=== PATIENT | male | born 1960 | race Caucasian/White ===

== ENCOUNTER 2020-02-06 12:29 | IRF | payer MEDICARE, MEDICAID, SELFPAY ==
[2020-02-06 13:20] VITALS: BMI 24.5
[2020-02-06 13:21] VITALS: BP 142/77; PULSE 74; RESP 18; TEMP 36.2; O2SAT 100
--- NOTE | 2020-02-06 13:37 | ADMGEN ---
This patient, Edward Snyder, was admitted to [facility] Room 219-01. Patient/family oriented to hospital policies and general routines including ID bracelet, bed and alarms, visiting hours, pain management, procedures, bathroom and other care routines, personal items, smoking policy, room service/diet, and visiting hours. Valuables list has been completed. Information on how to activate the Rapid Response Team has been discussed. Patient/Family are encouraged to report perceived risks to care and to ask questions if they do not understand what they are told or what they should do.
[2020-02-06 14:42] VITALS: PULSE 74; RESP 18; O2SAT 100; BMI 24.5
[2020-02-06 17:06] LABS: Glucose Point of Care 189 (65-105)
[2020-02-06] MEDS: metFORMIN HCL 500 MG TABLET 1000 MG PO (17:50)
[2020-02-06] MEDS: glipiZIDE 5 MG TABLET 10 MG BY MOUTH (17:50)
[2020-02-06] MEDS: INSULIN ASPART (*BKC) 100 UNITS/ML 15 UNITS SUB-Q (17:50)
[2020-02-06 20:00] VITALS: PULSE 78; RESP 20; O2SAT 100
[2020-02-06] MEDS: QUEtiapine FUMARATE 25 MG TABLET 50 MG PO (20:19)
[2020-02-06] MEDS: PRAVASTATIN SODIUM 20 MG TABLET PO (20:19)
[2020-02-06] MEDS: INSULIN GLARGINE (*BKC) 100 UNITS/ML 30 UNITS SUB-Q (20:20)
[2020-02-06 20:28] LABS: Glucose Point of Care 114 (65-105)
[2020-02-06 22:00] VITALS: BP 142/73; PULSE 78; RESP 20; TEMP 36.8; O2SAT 100
[2020-02-07 05:27] LABS: Basophils Absolute Auto 0.1 K/mm3 (0.0-0.1); Basophils Percent Auto 0.7 % (0.2-1.2); Eosinophils Absolute Auto 0.1 K/mm3 (0-0.3); Eosinophils Percent Auto 1.9 % (0-4.4); Hemoglobin 13.8 g/dL (14.0-18.0); Immature Granulocyte Absolute 0.05 K/mm3 (0.00-0.031); Immature Granulocyte Percent A 0.7 % (0-0.5); Lymphocytes Absolute Auto 2.39 K/mm3 (0.9-3.2); Lymphocytes Percent Auto 32.6 % (18.3-44.2); Mean Corpuscular HGB Conc 32.9 g/dl (32-36); Mean Corpuscular Hemoglobin 29.4 pg (26-34); Mean Corpuscular Volume 89.4 fl (80-100); Mean Platelet Volume 9.8 fl (7.4-10.4); Monocytes Absolute Auto 0.6 K/mm3 (0.1-0.6); Monocytes Percent Auto 7.8 % (2.6-8.5); Neutrophils Absolute Auto 4.1 K/mm3 (1.3-6.7); Neutrophils Percent Auto 56.3 % (45.5-73.1); Platelet Count Result 374 k/mm3 (150-375); Red Cell Distribution Width 13.1 % (11.5-14.5); White Blood Count 7.3 K/mm3 (4.5-10.0)
[2020-02-07 05:39] LABS: Hemoglobin A1C 11.9 % (<5.7)
[2020-02-07 05:41] LABS: Blood Urea Nitrogen 23 mg/dL (9-20); Calcium 9.2 mg/dL (8.4-10.2); Carbon Dioxide 33 mmol/L (22-30); Chloride 103 mmol/L (98-107); Estimated CRCL calculation 85 ml/min; Estimated Glomerular Filt Rate > 60; Glucose 74 mg/dL (75-110); Potassium 4.5 mmol/L (3.4-5.0); Sodium 137 mmol/L (137-145)
[2020-02-07 06:00] VITALS: BP 144/75; PULSE 66; RESP 18; TEMP 36.7; O2SAT 100
[2020-02-07] MEDS: QUEtiapine FUMARATE 100 MG TABLET 200 MG PO ×2 (06:05→12:54)
[2020-02-07 07:54] LABS: Glucose Point of Care 85 (65-105)
[2020-02-07] MEDS: INSULIN ASPART (*BKC) 100 UNITS/ML 15 UNITS SUB-Q ×2 (07:58→17:15)
[2020-02-07] MEDS: glipiZIDE 5 MG TABLET 10 MG BY MOUTH ×2 (07:59→17:12)
[2020-02-07] MEDS: metFORMIN HCL 500 MG TABLET 1000 MG PO ×2 (07:59→17:13)
[2020-02-07 08:00] VITALS: PULSE 68; RESP 18; O2SAT 100
[2020-02-07] MEDS: lisinopriL 20 MG TABLET 40 MG PO (08:00)
[2020-02-07] MEDS: ASPIRIN 81 MG ENTERIC TABLET PO (08:00)
--- NOTE | 2020-02-07 12:00 | WPDREHABHP ---
H&P: HPI History of Present Illness Chief complaint: CVA Narrative: Edward Snyder is a 59 year old male HISTORY OF PRESENT ILLNESS: The patient's primary rehab impairment category is 0 1-stroke The etiologic diagnosis is right ribeiro radiata acute / recent nonhemorrhagic infarction I saw this patient [id number] on February 07, 2020 at 12 noon The patient is a 59-year-old right-handed white male with a past medical history of hypertension and type 2 diabetes mellitus who initially presented to [facility] on February 02, 2020 with difficulty walking and hip pain that has been worsening for the previous 3 weeks. The patient reported progressive left leg weakness following following a fall. He has reported several fall since the 09 10 the last fall being just prior to admission when he slipped on a rug. CT of the head was negative. Hip CT showed a contusion but no fracture. Lab work was significant for acute kidney injury. He was admitted for acute kidney injury and left hip pain. He was given gentle hydration with improvement of creatinine to normal levels. Patient continued to have weakness so a brain MRI was ordered as well as a Neurology consult. Dr. epperson a neurologist reviewed the MRI and the patient was found to have multiple strokes on both sides in varying ages of from a couple of days ago to a few weeks old. 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 An echo was performed and showed an ejection fraction of 55 to 60%. No shunting or septal defects were noted. Carotid Dopplers did not show any significant stenosis. He will have an event monitor which is on place prior to discharge for 4 weeks. Physical examination continues to reveal generalized weakness impaired balance and decreased gross motor control. He passed his swallowing study and is on a mechanical soft / cardiac/ diabetic diet with thin liquids. He was source of his to be have been discharged on Lovenox however I do not see on his discharge medication but he would needed at least daily starts walking better The patient has not traveled outside the [place] or had contact with someone who is ill that has traveled outside the [place] in the previous 21 days. The patient has not traveled to an area of the [place] that is experiencing known transmission of the Coronavirus and has not had close personal contact with anyone that has. The patient does not have a fever. The patient is not experiencing any lower respiratory illness symptoms. Therapy was initiated at the acute care facility and the patient transferred to from [facility] on February 06, 2020 FALLS OR SURGERIES: The patient has had major surgeries in the 100 days prior to admission. They had falls in the past year. They had falls with injury in the past year. PAST MEDICAL HISTORY: hyperlipidemia hypertension diabetes mellitus PAST SURGICAL HISTORY: none SOCIAL HISTORY: the patient lives with his brother in a 2 story home with basement. He needs to get to the 2nd level to get to his bedroom. The laundry is in the basement. The patient was completely independent prior with no assistive device. The patient brother works but the patient says that [facility] Medina is available to help him following rehab if necessary. The patient had a fall just prior to his admission. No major surgery in the previous under days. Alcohol use to 4 times per month last drink was 1 week ago current every day smoker. FAMILY HISTORY: First-degree relative with hypertension mother with diabetes mellitus PRIOR LEVEL OF FUNCTION: Eating was INDEPENDENT Oral Care was INDEPENDENT Toileting Hygiene was INDEPENDENT Shower/Bathing was INDEPENDENT Upper Body Dressing was the patient lives with his brother in a 2 story home with the basement. He needs to get to the 2nd level to get to his bedroom. The laundry is in the basement. The patient was completely independent prior with no assistive
[2020-02-07 12:03] LABS: Glucose Point of Care 44 (65-105)
[2020-02-07 14:00] VITALS: BP 132/76; PULSE 86; RESP 18; TEMP 36.6; O2SAT 100
[2020-02-07] MEDS: TAMSULOSIN HCL 0.4 MG CAPSULE PO (15:26)
[2020-02-07 16:57] LABS: Glucose Point of Care 184 (65-105)
[2020-02-07 20:00] VITALS: PULSE 66; RESP 18; O2SAT 100
[2020-02-07] MEDS: PRAVASTATIN SODIUM 20 MG TABLET PO (20:23)
[2020-02-07] MEDS: QUEtiapine FUMARATE 25 MG TABLET 50 MG PO (20:23)
[2020-02-07] MEDS: INSULIN GLARGINE (*BKC) 100 UNITS/ML 30 UNITS SUB-Q (20:25)
[2020-02-07 21:46] VITALS: BP 105/75; PULSE 55; RESP 18; TEMP 36.7; O2SAT 100
[2020-02-07 21:46] LABS: Glucose Point of Care 86 (65-105)
[2020-02-08 06:00] VITALS: BP 135/76; PULSE 76; RESP 18; TEMP 36.9; O2SAT 100
[2020-02-08] MEDS: QUEtiapine FUMARATE 100 MG TABLET 200 MG PO ×2 (06:02→12:29)
[2020-02-08 07:00] LABS: Glucose Point of Care 70 (65-105)
[2020-02-08 08:00] VITALS: PULSE 76; RESP 18; O2SAT 98
[2020-02-08] MEDS: INSULIN ASPART (*BKC) 100 UNITS/ML 15 UNITS SUB-Q ×3 (08:24→17:32)
[2020-02-08] MEDS: lisinopriL 20 MG TABLET 40 MG PO (08:25)
[2020-02-08] MEDS: ASPIRIN 81 MG ENTERIC TABLET PO (08:25)
[2020-02-08] MEDS: metFORMIN HCL 500 MG TABLET 1000 MG PO ×2 (08:25→17:31)
[2020-02-08] MEDS: glipiZIDE 5 MG TABLET 10 MG BY MOUTH ×2 (08:25→17:31)
[2020-02-08 12:10] LABS: Glucose Point of Care 77 (65-105)
[2020-02-08 14:00] VITALS: BP 107/65; PULSE 76; RESP 18; TEMP 36.4; O2SAT 100
[2020-02-08 17:18] LABS: Glucose Point of Care 71 (65-105)
--- NOTE | 2020-02-08 17:50 | WPDNEURORHBP ---
Subjective Date/time seen: 02/08/20 17:50 Interval history: this 59-year-old diabetic male is here after having had a stroke with left-sided hemiparesis he denies any headache nausea vomiting chest pain shortness of breath and engage in therapy quite comfortable his left-sided weakness is improving Review of Systems Review of Systems: All systems reviewed & are unremarkable except as noted in HPI and below Functional Status Ambulation Ability Ambulation Assistive Devices: Parallel Bars Exam Const: General: comfortable and no acute distress HENMT: General nose exam: Normal nares present Mouth: Yes moist mucous membranes Eyes: General: appearance normal, both eyes and all related structures Neck: Neck: supple and no JVD Resp: Effort & Inspection: normal respiratory effort Auscultation: clear to auscultation bilaterally Cardio: Rate: regular rate Rhythm: regular rhythm GI: GI Palp: Yes Soft to palpation Auscultation: normal bowel sounds Skin: General skin exam: normal color and no rashes or lesions noted Neuro: Other: patient is awake and alert well oriented has left-sided weakness which is improving Extrem: General: normal to inspection Psych: Mental Status: mental status grossly normal Objective Data Vital Signs Vital Signs: Vital Signs - 24 hr 02/07/20 20:00 02/07/20 21:46 02/08/20 06:00 Temperature 36.7 C 36.9 C Pulse Rate 66 55 L 76 Respiratory Rate 18 18 18 Blood Pressure 105/75 135/76 Pulse Oximetry 100 100 100 02/08/20 08:00 02/08/20 14:00 Temperature 36.4 C L Pulse Rate 76 76 Respiratory Rate 18 18 Blood Pressure 107/65 Pulse Oximetry 98 100 Intake/Output Intake/Output: Intake & Output 02/05/20 02/06/20 02/07/20 02/08/20 23:59 23:59 23:59 23:59 Intake Total 720 840 480 Balance 720 840 480 Meds/Results Medications: Active Medications Generic Name Dose Route Start Last Admin Trade Name Freq PRN Reason Stop Dose Admin Aspirin 81 mg 02/07/20 09:00 02/08/20 08:25 Aspirin Ec PO 81 mg DAILY BRIGHT Administration Glipizide 10 mg 02/06/20 17:00 02/08/20 17:31 Glucotrol BY MOUTH 10 mg BIDWM BRIGHT Administration Insulin Aspart 15 units 02/06/20 17:00 02/08/20 17:32 Novolog SUB-Q 15 units TIDWM BRIGHT Administration Insulin Glargine 30 units 02/06/20 21:00 02/07/20 20:25 Lantus SUB-Q 30 units HS BRIGHT Administration Lisinopril 40 mg 02/07/20 09:00 02/08/20 08:25 Prinivil PO 40 mg DAILY BRIGHT Administration Metformin HCl 1,000 mg 02/06/20 17:00 02/08/20 17:31 Glucophage PO 1,000 mg BIDWM BRIGHT Administration Pravastatin Sodium 20 mg 02/06/20 21:00 02/07/20 20:23 Pravastatin Sodium PO 20 mg HS BRIGHT Administration Quetiapine Fumarate 50 mg 02/06/20 21:00 02/07/20 20:23 Seroquel PO 03/07/20 21:01 50 mg HS BRIGHT Administration Quetiapine Fumarate 200 mg 02/06/20 13:40 02/08/20 12:29 Seroquel PO 200 mg BID@0700,1200 BRIGHT Administration Tramadol HCl 50 mg 02/06/20 13:32 Ultram PO Q8H PRN Pain Labs Labs: Laboratory Results - last 24 hr 02/07/20 02/08/20 02/08/20 20:17 06:41 11:55 POC Capillary Glucose 86 70 77 02/08/20 16:55 POC Capillary Glucose 71 Progress Note: A&P Assessment and Plan (1) Hemiparesis of left nondominant side: Code(s): G81.94 - Hemiplegia, unspecified affecting left nondominant side Status: Acute (2) Tobacco abuse: Code(s): Z72.0 - Tobacco use Status: Acute (3) Alcohol use: Code(s): Z72.89 - Other problems related to lifestyle Status: Acute (4) Diabetes mellitus: Code(s): E11.9 - Type 2 diabetes mellitus without complications Status: Acute (5) Hypertension: Code(s): I10 - Essential (primary) hypertension Status: Acute (6) Stroke: Code(s): I63.9 - Cerebral infarction, unspecified Status: Acute Additional Plan medical managemen
[2020-02-08] MEDS: QUEtiapine FUMARATE 25 MG TABLET 50 MG PO (20:24)
[2020-02-08] MEDS: PRAVASTATIN SODIUM 20 MG TABLET PO (20:24)
[2020-02-08 21:44] LABS: Glucose Point of Care 35 (65-105)
[2020-02-08 21:44] LABS: Glucose Point of Care 122 (65-105)
[2020-02-08 22:00] VITALS: BP 122/73; PULSE 79; RESP 18; TEMP 36.6; O2SAT 100
[2020-02-09 01:58] LABS: Glucose Point of Care 63 (65-105)
[2020-02-09 03:14] LABS: Glucose Point of Care 66 (65-105)
[2020-02-09 05:04] LABS: Glucose Point of Care 59 (65-105)
[2020-02-09 05:58] VITALS: BP 111/72; PULSE 71; RESP 18; TEMP 36.9; O2SAT 100
[2020-02-09] MEDS: QUEtiapine FUMARATE 100 MG TABLET 200 MG PO ×2 (06:54→12:28)
[2020-02-09 06:57] LABS: Glucose Point of Care 93 (65-105)
--- NOTE | 2020-02-09 07:52 | PC.NURSE ---
called Dr Vogel regarding decreased glucose this am. per Dr Vogel no diabetes medication given this morning. will continue to monitor blood glucose.
[2020-02-09] MEDS: ASPIRIN 81 MG ENTERIC TABLET PO (08:22)
[2020-02-09] MEDS: lisinopriL 20 MG TABLET 40 MG PO (08:22)
--- NOTE | 2020-02-09 09:32 | WPDNEURORHBP ---
Subjective Date/time seen: 02/09/20 09:32 DM withleft hemiparesis and Hypertension Review of Systems Review of Systems: All systems reviewed & are unremarkable except as noted in HPI and below Functional Status Ambulation Ability Ambulation Assistive Devices: Parallel Bars Exam Const: General: cooperative, comfortable and no acute distress Orientation/consciousness: patient oriented x3 HENMT: Head: normal to inspection General nose exam: No nasal discharge present Mouth: Yes Normal oral and palatal mucosa present Eyes: General: appearance normal, both eyes and all related structures Neck: Neck: full ROM Chest: Chest palpation & inspection: normal inspection of the chest Resp: Effort & Inspection: normal respiratory effort Auscultation: clear to auscultation bilaterally Cardio: Rate: regular rate Rhythm: regular rhythm GI: Auscultation: normal bowel sounds Neuro: General: patient oriented x3 and moves all extremities Cranial nerves: Yes Equal, round and reactive pupils present, Yes Bilaterally intact EOM present, Yes Nystagmus not present, Yes Midline tongue present, Yes Ability to bilaterally rotate head present and Yes Ability to bilaterally elevate shoulders present Cognition (Neuro): normal cognition Speech: normal speech Motor exam (neuro): Abnormal motor strength present (left hemiparesis) Deep tendon reflexes (DTR's): Right triceps reflex intensity grade: 1+, Left triceps reflex intensity grade: 2+, Rt Biceps (C5, C6): 1+, Left biceps reflex intensity grade: 2+, Right brachioradialis reflex intensity grade: 1+, Left brachioradialis reflex intensity grade: 2+, Right patellar reflex intensity grade: 1+, Left patellar reflex intensity grade: 2+, Right ankle reflex intensity grade: 1+ and Left ankle reflex intensity grade: 2+ Plantar Reflex Responses: downgoing: right and upgoing (positive Babinski): left Psych: Appearance: grossly normal Objective Data Vital Signs Vital Signs: Vital Signs - 24 hr 02/08/20 14:00 02/08/20 22:00 02/09/20 05:58 Temperature 36.4 C L 36.6 C 36.9 C Pulse Rate 76 79 71 Respiratory Rate 18 18 18 Blood Pressure 107/65 122/73 111/72 Pulse Oximetry 100 100 100 Intake/Output Intake/Output: Intake & Output 02/06/20 02/07/20 02/08/20 02/09/20 23:59 23:59 23:59 23:59 Intake Total 720 840 720 240 Balance 720 840 720 240 Meds/Results Medications: Active Medications Generic Name Dose Route Start Last Admin Trade Name Keo PRN Reason Stop Dose Admin Aspirin 81 mg 02/07/20 09:00 02/09/20 08:22 Aspirin Ec PO 81 mg DAILY BRIGHT Administration Glipizide 10 mg 02/06/20 17:00 02/09/20 07:48 Glucotrol BY MOUTH Not Given BIDWM BRIGHT Insulin Aspart 15 units 02/06/20 17:00 02/09/20 07:49 Novolog SUB-Q Not Given TIDWM BRIGHT Insulin Glargine 30 units 02/06/20 21:00 02/08/20 20:53 Lantus SUB-Q Not Given HS BRIGHT Lisinopril 40 mg 02/07/20 09:00 02/09/20 08:22 Prinivil PO 40 mg DAILY BRIGHT Administration Metformin HCl 1,000 mg 02/06/20 17:00 02/09/20 07:51 Glucophage PO Not Given BIDWM BRIGHT Pravastatin Sodium 20 mg 02/06/20 21:00 02/08/20 20:24 Pravastatin Sodium PO 20 mg HS BIRGHT Administration Quetiapine Fumarate 50 mg 02/06/20 21:00 02/08/20 20:24 Seroquel PO 03/07/20 21:01 50 mg HS BRIGHT Administration Quetiapine Fumarate 200 mg 02/06/20 13:40 02/09/20 06:54 Seroquel PO 200 mg BID@0700,1200 BRIGHT Administration Tramadol HCl 50 mg 02/06/20 13:32 Ultram PO Q8H PRN Pain Labs Labs: Laboratory Results - last 24 hr 02/08/20 02/08/20 02/08/20 11:55 16:55 20:20 POC Capillary Glucose 77 71 35 L* 02/08/20 02/09/20 02/09/20 20:52 01:52 03:09 POC Capillary Glucose 122 H 63 L 66 02/09/20 02/09/20 05:01 06:53 POC Capillary Glucose 59 L* 93 Progress Note: A&P Assessment and Plan (1) Hemiparesis of left nondominant side: Code(s): G81
[2020-02-09 11:55] VITALS: BMI 24.5
[2020-02-09 11:59] LABS: Glucose Point of Care 240 (65-105)
--- NOTE | 2020-02-09 12:23 | PCNFU ---
Nutrition Follow-Up Complete: Decreased saturated fat/cholesterol needs related to cardiovascular disease as evidenced by CVA. Goal: Patient to consume 75% of meals or greater. Patient is meeting nutritional goal. We will continue current goal. Pt current nutrition is DBCC. Nutrition recommendation:Agree Last recorded weight is 80 kg. Bowel Motility:Last BM noted 02/06. Labs Reviewed: No new labs to report Meds Noted: Novolog Additional Notes: Spoke with patient today regarding diet. He states to no diet questions or concerns. Oral Intake has been 100% of meals. Patient instruction attached in discharge plan. Monitoring: Follow up in 7 days.
[2020-02-09] MEDS: INSULIN ASPART (*BKC) 100 UNITS/ML 6 UNITS SUB-Q ×2 (12:27→17:29)
[2020-02-09 14:00] VITALS: BP 118/74; PULSE 73; RESP 20; TEMP 36.8; O2SAT 98
--- NOTE | 2020-02-09 15:25 | RPD ---
INDIVIDUALIZED PLAN OF CARE FOR Edward Snyder Brief Synthesis of Pre-Admission Screen, Post-Admission Evaluation and Therapy Evaluations: The patient presents to rehab with right ribeiro radiata acute/recent non-hemorrhagic infarction. Comorbidities include: Acute kidney injury, hypertension, weakness, thigh contusion, diabetes mellitus with hyperglycemia, acute pain. The patient requires physician services for neurology services, medical oversight, and coordination of care. The patient needs physician monitoring and treatment of hypertension, diabetes mellitus with hyperglycemia, monitoring for adverse reactions to new medications, monitoring of infection, abd pain control. The patient requires nursing services for frequent neuro checks, anticoagulation therapy, medication management and education, pressure relief and skin care management, monitoring of labs, diabetes management and education, and fall/safety precautions. Deficits include:ADLs, Balance, Endurance, Family Training/Education, Mobility, Pain Management, ROM, Safety, Strength, Transfers Sanitizer/Case Management for: Discharge Planning and Patient/Family Counseling Physical Therapy: 5 days per week for 90 minutes. Treatments may include: Therapeutic Exercise, Gait Training, Neuromuscular Re-education, Transfer Training, Community Reintegration, Bed Mobility, Patient/Family Education, Wheelchair Mobility Group Therapy/Concurrent Therapy Rationales: -Improve attention span during functional activities in a distracted environment. -Enhance problem solving and/or adequate judgment skills during functional activities in a distracted environment. -Promote increased safety awareness in a distracted environment to reduce fall risk with functional tasks, transfers, and ambulation to allow a more safe, self-sufficient return to the home environment. -Improve dynamic balance skills to promote safety and independence with functional activities in a distracted environment for maximum gain. Occupational Therapy: 5 days per week for 90 minutes. Treatments may include: Therapeutic Exercise, Therapeutic Activity, Cognitive Training, Self-Care Transfer Training, Community Reintegration, Home Management, Patient/Family Education, Wheelchair Mobility Training, Energy Conservation Training Group Therapy/Concurrent Therapy Rationales: -Allow therapist to observe and teach generalization and carry-over of skills learned in individual therapy. -Enhance problem solving and sequencing skills during therapeutic activities in a distracted environment. -Promote increased safety awareness in a realistic setting to reduce fall risk with functional tasks due to visual and verbal distractions. -Increase functional level with ADLs, ADL transfers and use of adaptive equipment through therapeutic activities with others while promoting safety to allow a more safe, self-sufficient return home. Medical Prognosis: Good Anticipated Length of Stay: 14-21 days Rehab Goals: Eating Goal: 06-Independent Oral Hygiene Goal: 06-Independent Toileting Hygiene Goal: 06-Independent Shower/Bathe Self Goal: 06-Independent Upper Body Dressing Goal: 06-Independent Lower Body Dressing Goal: 06-Independent Putting On/Taking Off Footwear Goal: 06-Independent Rolling Left and Right Goal: 06-Independent Sit to Lying Goal: 06-Independent Lying to Sitting on Side of Bed Goal: 06-Independent Sit to Stand Goal: 06-Independent Chair/[id number] Transfer Goal: 06-Independent Toilet Transfer Goal: 06-Independent Car Transfer Goal: 04-Supervision Walk 10' Goal: 04-Supervision Walk 50' with Two Turns Goal: 04-Supervision Walk 150' Goal: 88-Not Attempted Due to Medical Conditions or Safety Concerns Walk 10' on Uneven Surface Goal: 04-Supervision 1 Step (Curb) Goal: 04-Supervision 4 Steps Goal: 04-Supervision 12 Steps Goal Score: 04-Supervision Picking Up Object Goal: 04-Supervision Wheel 50' with Two Turns Score: 06-Independent Wheel 150' Goal: 0
--- NOTE | 2020-02-09 15:27 | PCPTNOTE ---
Jackie SarahyHortencia Holguin PTA completed an inpatient rehab wheelchair evaluation on Edward Snyder on 02/09/2020. The patient is unable to safely and independently ambulate household distances due to their current impairments. Their diagnosis is CVA and their impairments include decreased strength, decreased endurance, decreased range of motion, decreased balance, lower extremity weakness, and ataxia. Edward's weight bearing status is weight-bearing as tolerated on the bilateral lower legs. The patient demonstrates significant functional mobility limitations that impair their ability to participate in mobility-related activities of daily living (MRADLs), including toileting, feeding, dressing, grooming, and bathing in the customary locations in the home. These limitations cannot be sufficiently resolved by the use of an appropriately fitted cane or walker. It is recommended that the patient utilize a wheelchair for functional mobility within the home in order to facilitate optimal safety, independence and participation in all MRADL's and adequately access their home environment on a regular basis. The patient's home provides adequate access between rooms, maneuvering space, and surfaces to accommodate the recommended wheelchair. The use of a wheelchair for functional mobility is strongly recommended and the patient is receptive to using the wheelchair. The use of this wheelchair will significantly improve the patient's ability to participate in MRADLS and the patient will use it on a regular basis in the home. This will facilitate optimal safety, independence, and participation. The patient has demonstrated sufficient physical and mental capabilities needed to safely propel a manual wheelchair that is provided in the home during a typical day. Recommended Wheelchair Frame: standard Recommended Wheelchair Size: 18x18 Recommended Wheelchair Cushion:standard Wheelchair Leg Recommendations: swing away leg rests - Anti-tippers are recommended due to patient demonstrating increased risk for falls. They would benefit from anti-tippers with added safety and stabilization. Jackie Paganenport NURSING UNIT COORDINATOR 02/09/2020 Evaluating Therapist Date I agree with and certify that the above recommendation is medically necessary. Referring Physician Date I agree with and certify that the above recommendation is medically necessary. Referring Physician Date
[2020-02-09 17:28] LABS: Glucose Point of Care 160 (65-105)
[2020-02-09] MEDS: metFORMIN HCL 500 MG TABLET 1000 MG PO (17:28)
[2020-02-09 20:16] VITALS: BP 104/61; PULSE 78; RESP 18; TEMP 36.4; O2SAT 100
[2020-02-09] MEDS: PRAVASTATIN SODIUM 20 MG TABLET PO (20:56)
[2020-02-09] MEDS: QUEtiapine FUMARATE 25 MG TABLET 50 MG PO (20:56)
[2020-02-09] MEDS: INSULIN GLARGINE (*BKC) 100 UNITS/ML 20 UNITS SUB-Q (20:59)
[2020-02-09 21:21] LABS: Glucose Point of Care 134 (65-105)
[2020-02-09 22:00] VITALS: BP 104/61; PULSE 78; RESP 18; TEMP 36.4; O2SAT 100
[2020-02-10 06:00] VITALS: BP 126/69; PULSE 76; RESP 18; TEMP 36.6; O2SAT 100
[2020-02-10] MEDS: QUEtiapine FUMARATE 100 MG TABLET 200 MG PO ×2 (06:43→12:31)
[2020-02-10 06:49] LABS: Glucose Point of Care 146 (65-105)
[2020-02-10] MEDS: INSULIN ASPART (*BKC) 100 UNITS/ML 6 UNITS SUB-Q ×3 (07:33→18:14)
[2020-02-10 08:00] VITALS: PULSE 76; RESP 18; O2SAT 100
[2020-02-10] MEDS: lisinopriL 20 MG TABLET 40 MG PO (10:14)
[2020-02-10] MEDS: ASPIRIN 81 MG ENTERIC TABLET PO (10:14)
[2020-02-10] MEDS: metFORMIN HCL 500 MG TABLET 1000 MG PO ×2 (10:14→18:08)
[2020-02-10] MEDS: ENOXAPARIN 40 MG/0.4 ML SYRINGE SUB-Q (10:15)
[2020-02-10 12:26] LABS: Glucose Point of Care 152 (65-105)
--- NOTE | 2020-02-10 13:16 | WPDNEURORHBP ---
Subjective Date/time seen: 02/10/20 13:16 Interval history: this 59-year-old diabetic male is here after having had a right hemispheric stroke. It was a family conference with the sister on the telephone available the patient does have a loop monitor in occupational therapy he is about doing 50% mostly because of the poor coordination in physical therapy likewise he is doing about 50% rest of the goals are doing otherwise is stable denies any headache nausea vomiting chest pain shortness of breath fever chills or sore throat Review of Systems Review of Systems: All systems reviewed & are unremarkable except as noted in HPI and below Functional Status Ambulation Ability Ability to Ambulate 10 Feet: Maximum Assistance X 1 Ambulation Assistive Devices: Parallel Bars and Walker, Wheeled Exam Const: General: comfortable and no acute distress HENMT: General nose exam: Normal nares present Mouth: Yes moist mucous membranes Eyes: General: appearance normal, both eyes and all related structures Neck: Neck: supple and no JVD Resp: Effort & Inspection: normal respiratory effort Auscultation: clear to auscultation bilaterally Cardio: Rate: regular rate Rhythm: regular rhythm GI: GI Palp: Yes Soft to palpation Auscultation: normal bowel sounds Urinary Catheter: Urinary Catheter: patent and draining Skin: General skin exam: normal color and no rashes or lesions noted Neuro: Other: patient is awake and alert however is not as energetic and feels fatigue and tired otherwise the left-sided hemiparesis is little bit better his making progress Extrem: General: normal to inspection Psych: Mental Status: mental status grossly normal Objective Data Vital Signs Vital Signs: Vital Signs - 24 hr 02/09/20 14:00 02/09/20 20:16 02/09/20 22:00 Temperature 36.8 C 36.4 C 36.4 C Pulse Rate 73 78 78 Respiratory Rate 20 18 18 Blood Pressure 118/74 104/61 104/61 Pulse Oximetry 98 100 100 02/10/20 06:00 02/10/20 08:00 Temperature 36.6 C Pulse Rate 76 76 Respiratory Rate 18 18 Blood Pressure 126/69 Pulse Oximetry 100 100 Intake/Output Intake/Output: Intake & Output 02/07/20 02/08/20 02/09/20 02/10/20 23:59 23:59 23:59 23:59 Intake Total 840 720 720 240 Balance 840 720 720 240 Meds/Results Medications: Active Medications Generic Name Dose Route Start Last Admin Trade Name Freq PRN Reason Stop Dose Admin Aspirin 81 mg 02/07/20 09:00 02/10/20 10:14 Aspirin Ec PO 81 mg DAILY BRIGHT Administration Dextrose 12.5 gm 02/09/20 12:07 Dextrose 50% Syringe IV PUSH PRN PRN Hypoglycemia Protocol Enoxaparin Sodium 40 mg 02/10/20 09:00 02/10/20 10:15 Lovenox SUB-Q 40 mg DAILY BRIGHT Administration Glucagon 1 mg 02/09/20 12:07 Glucagon For Inj IM PRN PRN Hypoglycemia Protocol Glucose 15 gm 02/09/20 12:07 Glutose 15 PO PRN PRN Hypoglycemia Protocol Dextrose 1,000 mls @ 100 mls/hr 02/09/20 12:07 Dextrose 5% 1,000 Ml IVPB PRN PRN Hypoglycemia Protocol Insulin Aspart 6 units 02/09/20 12:05 02/10/20 12:31 Novolog SUB-Q 6 units TIDWM BRIGHT Administration Insulin Aspart 2 - 5 units 02/09/20 17:00 02/10/20 12:30 Novolog SUB-Q Not Given TIDWM BRIGHT Protocol Insulin Glargine 20 units 02/09/20 21:00 02/09/20 20:59 Lantus SUB-Q 20 units HS BRIGHT Administration Lisinopril 40 mg 02/07/20 09:00 02/10/20 10:14 Prinivil PO 40 mg DAILY BRIGHT Administration Metformin HCl 1,000 mg 02/06/20 17:00 02/10/20 10:14 Glucophage PO 1,000 mg BIDWM BRIGHT Administration Pravastatin Sodium 20 mg 02/06/20 21:00 02/09/20 20:56 Pravastatin Sodium PO 20 mg HS BRIGHT Administration Quetiapine Fumarate 50 mg 02/06/20 21:00 02/09/20 20:56 Seroquel PO 03/07/20 21:01 50 mg HS BRIGHT Administration Quetiapine Fumarate 200 mg 02/06/20 13:40 02/10/20 12:31 Seroquel PO 200 mg
[2020-02-10 14:00] VITALS: BP 92/54; PULSE 99; RESP 18; TEMP 36.4; O2SAT 100
[2020-02-10 18:18] LABS: Glucose Point of Care 163 (65-105)
[2020-02-10] MEDS: INSULIN GLARGINE (*BKC) 100 UNITS/ML 20 UNITS SUB-Q (20:43)
[2020-02-10] MEDS: QUEtiapine FUMARATE 25 MG TABLET 50 MG PO (20:43)
[2020-02-10] MEDS: PRAVASTATIN SODIUM 20 MG TABLET PO (20:43)
[2020-02-10 21:39] LABS: Glucose Point of Care 184 (65-105)
[2020-02-10 22:00] VITALS: BP 133/75; PULSE 74; RESP 18; TEMP 36.8; O2SAT 100
[2020-02-11 06:00] VITALS: BP 149/84; PULSE 69; RESP 19; TEMP 36.7; O2SAT 99
[2020-02-11] MEDS: QUEtiapine FUMARATE 100 MG TABLET 200 MG PO ×2 (06:01→12:37)
[2020-02-11 06:48] LABS: Glucose Point of Care 165 (65-105)
[2020-02-11] MEDS: INSULIN ASPART (*BKC) 100 UNITS/ML 6 UNITS SUB-Q ×3 (07:47→17:30)
[2020-02-11] MEDS: DOCUSATE SODIUM 100 MG CAPSULE PO ×2 (08:55→20:41)
[2020-02-11] MEDS: lisinopriL 20 MG TABLET 40 MG PO (08:55)
[2020-02-11] MEDS: metFORMIN HCL 500 MG TABLET 1000 MG PO ×2 (08:55→17:29)
[2020-02-11] MEDS: ASPIRIN 81 MG ENTERIC TABLET PO (08:55)
[2020-02-11] MEDS: ENOXAPARIN 40 MG/0.4 ML SYRINGE SUB-Q (08:55)
[2020-02-11 09:05] VITALS: PULSE 68; RESP 18; O2SAT 99
--- NOTE | 2020-02-11 09:34 | WPDNEURORHBP ---
Subjective Date/time seen: 02/11/20 09:34 Interval history: this 59-year-old diabetic male is here after having had a right hemispheric stroke with left-sided hemiparesis he is improving in the rehab does not have any new specific complaints particularly denies any headache nausea vomiting chest pain or shortness of breath his diabetic control seems to be better on with the present regimen of the medications Review of Systems Review of Systems: All systems reviewed & are unremarkable except as noted in HPI and below Functional Status Ambulation Ability Ability to Ambulate 10 Feet: Moderate Assistance X 1 Ambulation Assistive Devices: Walker, Wheeled Exam Const: General: comfortable and no acute distress HENMT: General nose exam: Normal nares present Mouth: Yes moist mucous membranes Eyes: General: appearance normal, both eyes and all related structures Neck: Neck: supple and no JVD Resp: Effort & Inspection: normal respiratory effort Auscultation: clear to auscultation bilaterally Cardio: Rate: regular rate Rhythm: regular rhythm GI: GI Palp: Yes Soft to palpation Auscultation: normal bowel sounds Skin: General skin exam: normal color and no rashes or lesions noted Neuro: Other: the patient is awake and alert well oriented in time place and person and improving his left-sided hemiparesis Extrem: General: normal to inspection Psych: Mental Status: mental status grossly normal Objective Data Vital Signs Vital Signs: Vital Signs - 24 hr 02/10/20 14:00 02/10/20 22:00 02/11/20 06:00 Temperature 36.4 C 36.8 C 36.7 C Pulse Rate 99 74 69 Respiratory Rate 18 18 19 Blood Pressure 92/54 L 133/75 149/84 H Pulse Oximetry 100 100 99 Intake/Output Intake/Output: Intake & Output 02/08/20 02/09/20 02/10/20 02/11/20 23:59 23:59 23:59 23:59 Intake Total 720 720 720 240 Balance 720 720 720 240 Meds/Results Medications: Active Medications Generic Name Dose Route Start Last Admin Trade Name Freq PRN Reason Stop Dose Admin Aspirin 81 mg 02/07/20 09:00 02/11/20 08:55 Aspirin Ec PO 81 mg DAILY BRIGHT Administration Dextrose 12.5 gm 02/09/20 12:07 Dextrose 50% Syringe IV PUSH PRN PRN Hypoglycemia Protocol Docusate Sodium 100 mg 02/11/20 09:00 02/11/20 08:55 Colace Capsule PO 100 mg Q12HR BRIGHT Administration Enoxaparin Sodium 40 mg 02/10/20 09:00 02/11/20 08:55 Lovenox SUB-Q 40 mg DAILY BRIGHT Administration Glucagon 1 mg 02/09/20 12:07 Glucagon For Inj IM PRN PRN Hypoglycemia Protocol Glucose 15 gm 02/09/20 12:07 Glutose 15 PO PRN PRN Hypoglycemia Protocol Dextrose 1,000 mls @ 100 mls/hr 02/09/20 12:07 Dextrose 5% 1,000 Ml IVPB PRN PRN Hypoglycemia Protocol Insulin Aspart 6 units 02/09/20 12:05 02/11/20 07:47 Novolog SUB-Q 6 units TIDWM BRIGHT Administration Insulin Aspart 2 - 5 units 02/09/20 17:00 02/11/20 07:33 Novolog SUB-Q Not Given TIDWM BRIGHT Protocol Insulin Glargine 20 units 02/09/20 21:00 02/10/20 20:43 Lantus SUB-Q 20 units HS BRIGHT Administration Lisinopril 40 mg 02/07/20 09:00 02/11/20 08:55 Prinivil PO 40 mg DAILY BRIGHT Administration Metformin HCl 1,000 mg 02/06/20 17:00 02/11/20 08:55 Glucophage PO 1,000 mg BIDWM BRIGHT Administration Pravastatin Sodium 20 mg 02/06/20 21:00 02/10/20 20:43 Pravastatin Sodium PO 20 mg HS BRIGHT Administration Quetiapine Fumarate 50 mg 02/06/20 21:00 02/10/20 20:43 Seroquel PO 03/07/20 21:01 50 mg HS BRIGHT Administration Quetiapine Fumarate 200 mg 02/06/20 13:40 02/11/20 06:01 Seroquel PO 200 mg BID@0700,1200 BRIGHT Administration Tramadol HCl 50 mg 02/06/20 13:32 Ultram PO Q8H PRN Pain Labs Labs: Laboratory Results - last 24 hr 02/10/20 02/10/20 02/10/20 12:12 18:12 20:37 POC Capillary Glucose 152 H 163 H 184 H 02/10
[2020-02-11 12:01] LABS: Glucose Point of Care 100 (65-105)
[2020-02-11 14:25] VITALS: BP 117/61; PULSE 87; RESP 16; TEMP 36.5; O2SAT 100
--- NOTE | 2020-02-11 15:30 | PCPTNOTE ---
Edward Snyder was evaluated for a wheeled walker on 02/11/2020 by this physical therapist digital assistant. The wheeled walker will resolve patient's mobility limitations and will be used for ADL's within the home. The patient can safely use the wheeled walker. ?The wheeled walker will resolve the patient?s mobility deficits, including decreased strength, impaired balance and decreased endurance.
[2020-02-11 17:01] LABS: Glucose Point of Care 91 (65-105)
[2020-02-11 20:00] VITALS: PULSE 72; RESP 18; O2SAT 97
[2020-02-11] MEDS: PRAVASTATIN SODIUM 20 MG TABLET PO (20:41)
[2020-02-11] MEDS: QUEtiapine FUMARATE 25 MG TABLET 50 MG PO (20:41)
[2020-02-11 20:56] LABS: Glucose Point of Care 105 (65-105)
[2020-02-11 22:00] VITALS: BP 96/55; PULSE 72; RESP 18; TEMP 36.6; O2SAT 97
--- NOTE | 2020-02-12 01:07 | PC.NURSE ---
Addendum entered by Sarah Zheng RN 02/12/20 01:13: 02/11/202099 Original Note: 2100 patient refused HS levimir 25 units due to FS 105,took HS snack. Message left for Dr Garber.
[2020-02-12 06:00] VITALS: BP 115/64; PULSE 75; RESP 18; TEMP 36.8; O2SAT 98
[2020-02-12] MEDS: QUEtiapine FUMARATE 100 MG TABLET 200 MG PO ×2 (06:32→12:46)
[2020-02-12 06:58] LABS: Glucose Point of Care 212 (65-105)
[2020-02-12] MEDS: INSULIN ASPART (*BKC) 100 UNITS/ML SUB-Q (07:38)
[2020-02-12] MEDS: INSULIN ASPART (*BKC) 100 UNITS/ML 6 UNITS SUB-Q ×3 (07:38→17:30)
[2020-02-12] MEDS: ENOXAPARIN 40 MG/0.4 ML SYRINGE SUB-Q (07:40)
[2020-02-12] MEDS: ASPIRIN 81 MG ENTERIC TABLET PO (07:40)
[2020-02-12] MEDS: metFORMIN HCL 500 MG TABLET 1000 MG PO ×2 (07:40→17:29)
[2020-02-12] MEDS: lisinopriL 20 MG TABLET 40 MG PO (07:40)
[2020-02-12] MEDS: DOCUSATE SODIUM 100 MG CAPSULE PO ×2 (07:41→20:47)
[2020-02-12 12:22] LABS: Glucose Point of Care 107 (65-105)
--- NOTE | 2020-02-12 12:58 | WPDNEURORHBP ---
Subjective Date/time seen: 02/12/20 12:58 Interval history: This 59-year-old daughter diabetic male is here after having had a stroke which has left him and moderately severe left-sided hemiparesis and none he is doing fairly well the therapy denies any headache nausea vomiting chest pain shortness of breath fever chills or sore throat Review of Systems Review of Systems: All systems reviewed & are unremarkable except as noted in HPI and below Functional Status Ambulation Ability Ability to Ambulate 10 Feet: Moderate Assistance X 1 Ambulation Assistive Devices: Walker, Wheeled Exam Const: General: comfortable and no acute distress HENMT: General nose exam: Normal nares present Mouth: Yes moist mucous membranes Eyes: General: appearance normal, both eyes and all related structures Neck: Neck: supple and no JVD Resp: Effort & Inspection: normal respiratory effort Auscultation: clear to auscultation bilaterally Cardio: Rate: regular rate Rhythm: regular rhythm GI: GI Palp: Yes Soft to palpation Auscultation: normal bowel sounds Skin: General skin exam: normal color and no rashes or lesions noted Neuro: Other: we will continue present medical management PT OT and gait training neurological status is improving Extrem: General: normal to inspection Psych: Mental Status: mental status grossly normal Objective Data Vital Signs Vital Signs: Vital Signs - 24 hr 02/12/20 14:00 02/12/20 22:00 02/13/20 06:00 Temperature 36.7 C 36.7 C 36.7 C Pulse Rate 76 84 70 Respiratory Rate 18 18 18 Blood Pressure 105/61 111/67 129/65 Pulse Oximetry 100 98 99 Intake/Output Intake/Output: Intake & Output 02/10/20 02/11/20 02/12/20 02/13/20 23:59 23:59 23:59 23:59 Intake Total 888 655 8345 240 Balance 863 087 7762 240 Meds/Results Medications: Active Medications Generic Name Dose Route Start Last Admin Trade Name Freq PRN Reason Stop Dose Admin Aspirin 81 mg 02/07/20 09:00 02/13/20 09:41 Aspirin Ec PO 81 mg DAILY BRIGHT Administration Dextrose 12.5 gm 02/09/20 12:07 Dextrose 50% Syringe IV PUSH PRN PRN Hypoglycemia Protocol Docusate Sodium 100 mg 02/11/20 09:00 02/13/20 09:41 Colace Capsule PO 100 mg Q12HR BRIGHT Administration Enoxaparin Sodium 40 mg 02/10/20 09:00 02/13/20 09:41 Lovenox SUB-Q 40 mg DAILY BRIGHT Administration Glucagon 1 mg 02/09/20 12:07 Glucagon For Inj IM PRN PRN Hypoglycemia Protocol Glucose 15 gm 02/09/20 12:07 Glutose 15 PO PRN PRN Hypoglycemia Protocol Dextrose 1,000 mls @ 100 mls/hr 02/09/20 12:07 Dextrose 5% 1,000 Ml IVPB PRN PRN Hypoglycemia Protocol Insulin Aspart 6 units 02/09/20 12:05 02/13/20 12:24 Novolog SUB-Q 6 units TIDWM BRIGHT Administration Insulin Aspart 2 - 5 units 02/09/20 17:00 02/13/20 12:23 Novolog SUB-Q Not Given TIDWM BRIGHT Protocol Insulin Glargine 20 units 02/09/20 21:00 02/12/20 20:48 Lantus SUB-Q Not Given HS BRIGHT Lisinopril 40 mg 02/07/20 09:00 02/13/20 09:42 Prinivil PO 40 mg DAILY BRIGHT Administration Metformin HCl 1,000 mg 02/06/20 17:00 02/13/20 09:41 Glucophage PO 1,000 mg BIDWM BRIGHT Administration Polyethylene Glycol 17 gm 02/12/20 21:00 02/12/20 20:48 Miralax PO 17 gm HS BRIGHT Administration Pravastatin Sodium 20 mg 02/06/20 21:00 02/12/20 20:47 Pravastatin Sodium PO 20 mg HS BRIGHT Administration Quetiapine Fumarate 50 mg 02/06/20 21:00 02/12/20 20:47 Seroquel PO 03/07/20 21:01 50 mg HS BRIGHT Administration Quetiapine Fumarate 200 mg 02/06/20 13:40 02/13/20 12:23 Seroquel PO 200 mg BID@0700,1200 BRIGHT Administration Tramadol HCl 50 mg 02/06/20 13:32 Ultram PO Q8H PRN Pain Labs Labs: Laboratory Results - last 24 hr 02/12/20 02/12/20 02/13/20 16:32 20:41 06:49 POC Capillary Glucose 143 H 85 198 H
[2020-02-12 14:00] VITALS: BP 105/61; PULSE 76; RESP 18; TEMP 36.7; O2SAT 100
[2020-02-12 16:42] LABS: Glucose Point of Care 143 (65-105)
[2020-02-12] MEDS: PRAVASTATIN SODIUM 20 MG TABLET PO (20:47)
[2020-02-12] MEDS: QUEtiapine FUMARATE 25 MG TABLET 50 MG PO (20:47)
[2020-02-12] MEDS: polyethylene glycoL 3350 17 GM POWD.PACK PO (20:48)
[2020-02-12 22:00] VITALS: BP 111/67; PULSE 84; RESP 18; TEMP 36.7; O2SAT 98
[2020-02-12 23:08] LABS: Glucose Point of Care 85 (65-105)
[2020-02-13 06:00] VITALS: BP 129/65; PULSE 70; RESP 18; TEMP 36.7; O2SAT 99
[2020-02-13] MEDS: QUEtiapine FUMARATE 100 MG TABLET 200 MG PO ×2 (06:14→12:23)
[2020-02-13 06:52] LABS: Glucose Point of Care 198 (65-105)
[2020-02-13] MEDS: metFORMIN HCL 500 MG TABLET 1000 MG PO ×2 (09:41→17:31)
[2020-02-13] MEDS: ASPIRIN 81 MG ENTERIC TABLET PO (09:41)
[2020-02-13] MEDS: ENOXAPARIN 40 MG/0.4 ML SYRINGE SUB-Q (09:41)
[2020-02-13] MEDS: DOCUSATE SODIUM 100 MG CAPSULE PO ×2 (09:41→20:32)
[2020-02-13] MEDS: lisinopriL 20 MG TABLET 40 MG PO (09:42)
[2020-02-13] MEDS: INSULIN ASPART (*BKC) 100 UNITS/ML 6 UNITS SUB-Q ×3 (09:48→17:35)
[2020-02-13 12:11] LABS: Glucose Point of Care 172 (65-105)
[2020-02-13 14:00] VITALS: BP 111/68; PULSE 86; RESP 18; TEMP 36.4; O2SAT 100
--- NOTE | 2020-02-13 15:38 | WPDNEURORHBP ---
Subjective Date/time seen: 02/13/20 15:38 Interval history: this 59-year-old is here after having and the right hemispheric stroke with left-sided hemiparesis he is diabetic and has been noncompliant his getting in the rehab much better each day and is happy with the care denies any headache nausea vomiting chest pain shortness of breath fever chills sore throat Review of Systems Review of Systems: All systems reviewed & are unremarkable except as noted in HPI and below Functional Status Ambulation Ability Ability to Ambulate 10 Feet: Moderate Assistance X 1 Ability to Ambulate 50 Feet With 2 Turns: Moderate Assistance X 1 Ambulation Assistive Devices: Walker, Wheeled Exam Const: General: comfortable and no acute distress HENMT: General nose exam: Normal nares present Mouth: Yes moist mucous membranes Eyes: General: appearance normal, both eyes and all related structures Neck: Neck: supple and no JVD Resp: Effort & Inspection: normal respiratory effort Auscultation: clear to auscultation bilaterally Cardio: Rate: regular rate Rhythm: regular rhythm GI: GI Palp: Yes Soft to palpation Auscultation: normal bowel sounds Skin: General skin exam: normal color and no rashes or lesions noted Neuro: Other: patient is awake and alert well oriented left-sided hemiparesis is improving Extrem: General: normal to inspection Psych: Mental Status: mental status grossly normal Objective Data Vital Signs Vital Signs: Vital Signs - 24 hr 02/12/20 22:00 02/13/20 06:00 02/13/20 14:00 Temperature 36.7 C 36.7 C 36.4 C Pulse Rate 84 70 86 Respiratory Rate 18 18 18 Blood Pressure 111/67 129/65 111/68 Pulse Oximetry 98 99 100 Intake/Output Intake/Output: Intake & Output 02/10/20 02/11/20 02/12/20 02/13/20 23:59 23:59 23:59 23:59 Intake Total 152 812 9084 480 Balance 534 852 9890 480 Meds/Results Medications: Active Medications Generic Name Dose Route Start Last Admin Trade Name Freq PRN Reason Stop Dose Admin Aspirin 81 mg 02/07/20 09:00 02/13/20 09:41 Aspirin Ec PO 81 mg DAILY BRIGHT Administration Dextrose 12.5 gm 02/09/20 12:07 Dextrose 50% Syringe IV PUSH PRN PRN Hypoglycemia Protocol Docusate Sodium 100 mg 02/11/20 09:00 02/13/20 09:41 Colace Capsule PO 100 mg Q12HR BRIGHT Administration Enoxaparin Sodium 40 mg 02/10/20 09:00 02/13/20 09:41 Lovenox SUB-Q 40 mg DAILY BRIGHT Administration Glucagon 1 mg 02/09/20 12:07 Glucagon For Inj IM PRN PRN Hypoglycemia Protocol Glucose 15 gm 02/09/20 12:07 Glutose 15 PO PRN PRN Hypoglycemia Protocol Dextrose 1,000 mls @ 100 mls/hr 02/09/20 12:07 Dextrose 5% 1,000 Ml IVPB PRN PRN Hypoglycemia Protocol Insulin Aspart 6 units 02/09/20 12:05 02/13/20 12:24 Novolog SUB-Q 6 units TIDWM BRIGHT Administration Insulin Aspart 2 - 5 units 02/09/20 17:00 02/13/20 12:23 Novolog SUB-Q Not Given TIDWM BRIGHT Protocol Insulin Glargine 20 units 02/09/20 21:00 02/12/20 20:48 Lantus SUB-Q Not Given HS BRIGHT Lisinopril 40 mg 02/07/20 09:00 02/13/20 09:42 Prinivil PO 40 mg DAILY BRIGHT Administration Metformin HCl 1,000 mg 02/06/20 17:00 02/13/20 09:41 Glucophage PO 1,000 mg BIDWM BRIGHT Administration Polyethylene Glycol 17 gm 02/12/20 21:00 02/12/20 20:48 Miralax PO 17 gm HS BRIGHT Administration Pravastatin Sodium 20 mg 02/06/20 21:00 02/12/20 20:47 Pravastatin Sodium PO 20 mg HS BRIGTH Administration Quetiapine Fumarate 50 mg 02/06/20 21:00 02/12/20 20:47 Seroquel PO 03/07/20 21:01 50 mg HS BRIGHT Administration Quetiapine Fumarate 200 mg 02/06/20 13:40 02/13/20 12:23 Seroquel PO 200 mg BID@0700,1200 BRGIHT Administration Tramadol HCl 50 mg 02/06/20 13:32 Ultram PO Q8H PRN Pain Labs Labs: Laboratory Results - last 24 hr 02/12/20 02/12/20 06/0
[2020-02-13 17:41] LABS: Glucose Point of Care 100 (65-105)
[2020-02-13] MEDS: QUEtiapine FUMARATE 25 MG TABLET 50 MG PO (20:32)
[2020-02-13] MEDS: PRAVASTATIN SODIUM 20 MG TABLET PO (20:32)
[2020-02-13] MEDS: polyethylene glycoL 3350 17 GM POWD.PACK PO (20:33)
[2020-02-13] MEDS: INSULIN GLARGINE (*BKC) 100 UNITS/ML 20 UNITS SUB-Q (20:34)
[2020-02-13 20:42] LABS: Glucose Point of Care 166 (65-105)
[2020-02-13 22:00] VITALS: BP 117/61; PULSE 80; RESP 16; TEMP 36.8; O2SAT 98
[2020-02-14 04:49] LABS: Basophils Absolute Auto 0.1 K/mm3 (0.0-0.1); Basophils Percent Auto 0.7 % (0.2-1.2); Eosinophils Absolute Auto 0.2 K/mm3 (0-0.3); Eosinophils Percent Auto 2.9 % (0-4.4); Hematocrit 36.9 % (42.0-52.0); Hemoglobin 12.3 g/dL (14.0-18.0); Immature Granulocyte Absolute 0.04 K/mm3 (0.00-0.031); Immature Granulocyte Percent A 0.6 % (0-0.5); Lymphocytes Percent Auto 33.9 % (18.3-44.2); Mean Corpuscular HGB Conc 33.3 g/dl (32-36); Mean Corpuscular Hemoglobin 29.2 pg (26-34); Mean Corpuscular Volume 87.6 fl (80-100); Mean Platelet Volume 9.2 fl (7.4-10.4); Monocytes Absolute Auto 0.6 K/mm3 (0.1-0.6); Monocytes Percent Auto 9.1 % (2.6-8.5); Neutrophils Absolute Auto 3.6 K/mm3 (1.3-6.7); Neutrophils Percent Auto 52.8 % (45.5-73.1); Platelet Count Result 364 k/mm3 (150-375); Red Blood Count 4.21 M/mm3 (4.6-6.20); White Blood Count 6.8 K/mm3 (4.5-10.0)
[2020-02-14 04:52] LABS: Blood Urea Nitrogen 27 mg/dL (9-20); Calcium 9.1 mg/dL (8.4-10.2); Carbon Dioxide 28 mmol/L (22-30); Chloride 106 mmol/L (98-107); Estimated CRCL calculation 85 ml/min; Estimated Glomerular Filt Rate > 60; Glucose 149 mg/dL (75-110); Potassium 4.7 mmol/L (3.4-5.0); Sodium 136 mmol/L (137-145)
[2020-02-14 06:00] VITALS: BP 129/57; PULSE 68; RESP 20; TEMP 36.7; O2SAT 98
[2020-02-14] MEDS: QUEtiapine FUMARATE 100 MG TABLET 200 MG PO ×2 (06:36→11:57)
[2020-02-14 06:57] LABS: Glucose Point of Care 164 (65-105)
[2020-02-14] MEDS: lisinopriL 20 MG TABLET 40 MG PO (07:51)
[2020-02-14] MEDS: metFORMIN HCL 500 MG TABLET 1000 MG PO ×2 (07:51→17:04)
[2020-02-14] MEDS: ENOXAPARIN 40 MG/0.4 ML SYRINGE SUB-Q (07:51)
[2020-02-14] MEDS: ASPIRIN 81 MG ENTERIC TABLET PO (07:51)
[2020-02-14] MEDS: DOCUSATE SODIUM 100 MG CAPSULE PO ×2 (07:51→20:34)
[2020-02-14] MEDS: INSULIN ASPART (*BKC) 100 UNITS/ML 6 UNITS SUB-Q ×3 (07:52→17:03)
[2020-02-14 11:43] LABS: Glucose Point of Care 104 (65-105)
[2020-02-14 14:00] VITALS: BP 108/62; PULSE 92; RESP 20; TEMP 36.8; O2SAT 98
[2020-02-14 16:40] LABS: Glucose Point of Care 155 (65-105)
[2020-02-14] MEDS: QUEtiapine FUMARATE 25 MG TABLET 50 MG PO (20:34)
[2020-02-14] MEDS: PRAVASTATIN SODIUM 20 MG TABLET PO (20:34)
[2020-02-14] MEDS: polyethylene glycoL 3350 17 GM POWD.PACK PO (20:34)
[2020-02-14] MEDS: INSULIN GLARGINE (*BKC) 100 UNITS/ML 20 UNITS SUB-Q (20:38)
[2020-02-14 21:23] LABS: Glucose Point of Care 173 (65-105)
[2020-02-14 22:00] VITALS: BP 133/77; PULSE 74; RESP 16; TEMP 37.1; O2SAT 99
[2020-02-15 06:00] VITALS: BP 121/71; PULSE 60; RESP 18; TEMP 36.4; O2SAT 98
[2020-02-15] MEDS: QUEtiapine FUMARATE 100 MG TABLET 200 MG PO ×2 (06:45→12:19)
[2020-02-15 06:53] LABS: Glucose Point of Care 158 (65-105)
[2020-02-15] MEDS: INSULIN ASPART (*BKC) 100 UNITS/ML 6 UNITS SUB-Q ×3 (06:59→17:37)
[2020-02-15] MEDS: metFORMIN HCL 500 MG TABLET 1000 MG PO ×2 (08:29→17:38)
[2020-02-15] MEDS: ASPIRIN 81 MG ENTERIC TABLET PO (08:29)
[2020-02-15] MEDS: DOCUSATE SODIUM 100 MG CAPSULE PO ×2 (08:29→21:20)
[2020-02-15] MEDS: lisinopriL 20 MG TABLET 40 MG PO (08:29)
[2020-02-15] MEDS: ENOXAPARIN 40 MG/0.4 ML SYRINGE SUB-Q (08:30)
--- NOTE | 2020-02-15 10:34 | WPDNEURORHBP ---
Subjective Date/time seen: S/P right hemispheric stroke with left hemiparesis and Diabetic involved in care no specific [id number]/[id number]/20 10:34 Review of Systems Review of Systems: All systems reviewed & are unremarkable except as noted in HPI and below Functional Status Ambulation Ability Ability to Ambulate 10 Feet: Moderate Assistance X 1 Ability to Ambulate 50 Feet With 2 Turns: Moderate Assistance X 1 Ambulation Assistive Devices: Walker, Wheeled Exam Const: General: cooperative and no acute distress HENMT: Head: normal to inspection Eyes: General: appearance normal, both eyes and all related structures Resp: Effort & Inspection: normal respiratory effort and able to speak in complete sentences Auscultation: clear to auscultation bilaterally Cardio: Rate: regular rate Rhythm: regular rhythm GI: Percussion: Yes normal to percussion Auscultation: normal bowel sounds Skin: General skin exam: no rashes or lesions noted Neuro: General: patient oriented x3 and moves all extremities Cranial nerves: Yes Equal, round and reactive pupils present, Yes Bilaterally intact EOM present, Yes Nystagmus not present, Yes Midline tongue present and Yes Ability to bilaterally rotate head present Cognition (Neuro): normal cognition Speech: normal speech Motor exam (neuro): Abnormal motor strength present (left hemiparesis improving) Psych: Appearance: grossly normal Objective Data Vital Signs Vital Signs: Vital Signs - 24 hr 02/14/20 14:00 02/14/20 22:00 02/15/20 06:00 Temperature 36.8 C 37.1 C 36.4 C L Pulse Rate 92 74 60 Respiratory Rate 20 16 18 Blood Pressure 108/62 133/77 121/71 Pulse Oximetry 98 99 98 Intake/Output Intake/Output: Intake & Output 02/12/20 02/13/20 02/14/20 02/15/20 23:59 23:59 23:59 23:59 Intake Total 1080 720 720 240 Balance 1080 720 720 240 Meds/Results Medications: Active Medications Generic Name Dose Route Start Last Admin Trade Name Freq PRN Reason Stop Dose Admin Aspirin 81 mg 02/07/20 09:00 02/15/20 08:29 Aspirin Ec PO 81 mg DAILY BRIGHT Administration Dextrose 12.5 gm 02/09/20 12:07 Dextrose 50% Syringe IV PUSH PRN PRN Hypoglycemia Protocol Docusate Sodium 100 mg 02/11/20 09:00 02/15/20 08:29 Colace Capsule PO 100 mg Q12HR BRIGHT Administration Enoxaparin Sodium 40 mg 02/10/20 09:00 02/15/20 08:30 Lovenox SUB-Q 40 mg DAILY BRIGHT Administration Glucagon 1 mg 02/09/20 12:07 Glucagon For Inj IM PRN PRN Hypoglycemia Protocol Glucose 15 gm 02/09/20 12:07 Glutose 15 PO PRN PRN Hypoglycemia Protocol Dextrose 1,000 mls @ 100 mls/hr 02/09/20 12:07 Dextrose 5% 1,000 Ml IVPB PRN PRN Hypoglycemia Protocol Insulin Aspart 6 units 02/09/20 12:05 02/15/20 06:59 Novolog SUB-Q 6 units TIDWM BRIGHT Administration Insulin Aspart 2 - 5 units 02/09/20 17:00 02/15/20 08:21 Novolog SUB-Q Not Given TIDWM BRIGHT Protocol Insulin Glargine 20 units 02/09/20 21:00 02/14/20 20:38 Lantus SUB-Q 20 units HS BRIGHT Administration Lisinopril 40 mg 02/07/20 09:00 02/15/20 08:29 Prinivil PO 40 mg DAILY BRIGHT Administration Metformin HCl 1,000 mg 02/06/20 17:00 02/15/20 08:29 Glucophage PO 1,000 mg BIDWM BRIGHT Administration Polyethylene Glycol 17 gm 02/12/20 21:00 02/14/20 20:34 Miralax PO 17 gm HS BRIGHT Administration Pravastatin Sodium 20 mg 02/06/20 21:00 02/14/20 20:34 Pravastatin Sodium PO 20 mg HS BRIGHT Administration Quetiapine Fumarate 50 mg 02/06/20 21:00 02/14/20 20:34 Seroquel PO 03/07/20 21:01 50 mg HS BRIGHT Administration Quetiapine Fumarate 200 mg 02/06/20 13:40 02/15/20 06:45 Seroquel PO 200 mg BID@0700,1200 BRIGHT Administration Tramadol HCl 50 mg 02/06/20 13:32 Ultram PO Q8H PRN Pain Labs Labs: Laboratory Results - last 24 hr 02/14/20 02/14/2002/13
[2020-02-15 12:09] LABS: Glucose Point of Care 137 (65-105)
[2020-02-15 14:00] VITALS: BP 126/72; PULSE 88; RESP 18; TEMP 36.9; O2SAT 100
[2020-02-15 18:14] LABS: Glucose Point of Care 134 (65-105)
[2020-02-15] MEDS: polyethylene glycoL 3350 17 GM POWD.PACK PO (21:20)
[2020-02-15] MEDS: PRAVASTATIN SODIUM 20 MG TABLET PO (21:20)
[2020-02-15] MEDS: QUEtiapine FUMARATE 25 MG TABLET 50 MG PO (21:21)
[2020-02-15] MEDS: INSULIN GLARGINE (*BKC) 100 UNITS/ML 20 UNITS SUB-Q (21:22)
[2020-02-15 21:40] LABS: Glucose Point of Care 150 (65-105)
[2020-02-15 22:00] VITALS: BP 111/63; PULSE 81; RESP 18; TEMP 37.1; O2SAT 98
[2020-02-16 06:00] VITALS: BP 107/66; PULSE 64; RESP 18; TEMP 36.8; O2SAT 98
[2020-02-16] MEDS: QUEtiapine FUMARATE 100 MG TABLET 200 MG PO ×2 (06:45→12:28)
[2020-02-16 06:54] LABS: Glucose Point of Care 142 (65-105)
[2020-02-16] MEDS: metFORMIN HCL 500 MG TABLET 1000 MG PO ×2 (08:19→17:32)
[2020-02-16] MEDS: ASPIRIN 81 MG ENTERIC TABLET PO (08:19)
[2020-02-16] MEDS: DOCUSATE SODIUM 100 MG CAPSULE PO ×2 (08:20→20:24)
[2020-02-16] MEDS: lisinopriL 20 MG TABLET 40 MG PO (08:20)
[2020-02-16] MEDS: INSULIN ASPART (*BKC) 100 UNITS/ML 6 UNITS SUB-Q (08:20)
[2020-02-16] MEDS: ENOXAPARIN 40 MG/0.4 ML SYRINGE SUB-Q (08:20)
--- NOTE | 2020-02-16 12:13 | PCDIET ---
Nutrition Follow-Up Complete: Nutrition Diagnosis: Decreased saturated fat/cholesterol needs related to cardiovascular disease as evidenced by CVA. Nutrition Goal: Patient to consume 75% of meals or greater. Goal met. Patient consuming 100% of meals on diabetic diet. Recommend adding heart healthy component. Last recorded weight is 80 kg. Recommend obtaining new weight. Bowel Motility: BM, soft, on 02/14/20. Labs Reviewed: Glu (142) Meds Noted: Colace, Lantus, Miralax, Novolog, Glucophage, Seroquel Additional Notes: No documented skin breakdown. Nutrition Monitoring and Evaluation: Follow up in 7 days.
[2020-02-16 14:00] VITALS: BP 105/79; PULSE 80; RESP 18; TEMP 36.6; O2SAT 100
[2020-02-16] MEDS: LACTULOSE 20 GM/30 ML UDC 30 GM PO (15:34)
[2020-02-16] MEDS: PRAVASTATIN SODIUM 20 MG TABLET PO (20:25)
[2020-02-16] MEDS: QUEtiapine FUMARATE 25 MG TABLET 50 MG PO (20:25)
[2020-02-16 20:52] LABS: Glucose Point of Care 183 (65-105)
[2020-02-16 21:56] VITALS: BP 129/75; PULSE 78; RESP 18; TEMP 36.8; O2SAT 97
[2020-02-17 01:05] LABS: Glucose Point of Care 44 (65-105)
[2020-02-17 01:05] LABS: Glucose Point of Care 129 (65-105)
[2020-02-17 01:05] LABS: Glucose Point of Care 127 (65-105)
[2020-02-17 05:44] VITALS: BP 103/65; PULSE 67; RESP 18; TEMP 36.7; O2SAT 99
[2020-02-17] MEDS: QUEtiapine FUMARATE 100 MG TABLET 200 MG PO ×2 (06:39→11:56)
[2020-02-17 06:54] LABS: Glucose Point of Care 181 (65-105)
[2020-02-17] MEDS: INSULIN ASPART (*BKC) 100 UNITS/ML 6 UNITS SUB-Q ×3 (07:43→16:56)
[2020-02-17] MEDS: DOCUSATE SODIUM 100 MG CAPSULE PO ×2 (07:44→21:05)
[2020-02-17] MEDS: metFORMIN HCL 500 MG TABLET 1000 MG PO ×2 (07:44→16:57)
[2020-02-17] MEDS: ASPIRIN 81 MG ENTERIC TABLET PO (07:44)
[2020-02-17] MEDS: lisinopriL 20 MG TABLET 40 MG PO (07:45)
[2020-02-17] MEDS: ENOXAPARIN 40 MG/0.4 ML SYRINGE SUB-Q (07:45)
[2020-02-17 12:34] LABS: Glucose Point of Care 139 (65-105)
--- NOTE | 2020-02-17 13:49 | WPDNEURORHBP ---
Subjective Date/time seen: 02/17/20 13:49 Interval history: this 59-year-old is here after having had stroke which has left him with left hemiparesis is improving and walking with help denies any headache nausea vomiting chest pain shortness of breath fever chills sore throat Review of Systems Review of Systems: All systems reviewed & are unremarkable except as noted in HPI and below Functional Status Ambulation Ability Ability to Ambulate 10 Feet: Moderate Assistance X 1 Ability to Ambulate 50 Feet With 2 Turns: Moderate Assistance X 1 Ability to Ambulate 150 Feet: Moderate Assistance X 1 Ambulation Assistive Devices: Walker, Wheeled Exam Const: General: comfortable and no acute distress HENMT: General nose exam: Normal nares present Mouth: Yes moist mucous membranes Eyes: General: appearance normal, both eyes and all related structures Neck: Neck: supple and no JVD Resp: Effort & Inspection: normal respiratory effort Auscultation: clear to auscultation bilaterally Cardio: Rate: regular rate Rhythm: regular rhythm GI: GI Palp: Yes Soft to palpation Auscultation: normal bowel sounds Skin: General skin exam: normal color and no rashes or lesions noted Neuro: Other: patient is awake and alert well oriented and improving left-sided hemiparesis Extrem: General: normal to inspection Psych: Mental Status: mental status grossly normal Objective Data Vital Signs Vital Signs: Vital Signs - 24 hr 02/16/20 14:00 02/16/20 21:56 02/17/20 05:44 Temperature 36.6 C 36.8 C 36.7 C Pulse Rate 80 78 67 Respiratory Rate 18 18 18 Blood Pressure 105/79 129/75 103/65 Pulse Oximetry 100 97 99 Intake/Output Intake/Output: Intake & Output 02/14/20 02/15/20 02/16/20 02/17/20 23:59 23:59 23:59 23:59 Intake Total 720 720 720 480 Balance 720 720 720 480 Meds/Results Medications: Active Medications Generic Name Dose Route Start Last Admin Trade Name Freq PRN Reason Stop Dose Admin Aspirin 81 mg 02/07/20 09:00 02/17/20 07:44 Aspirin Ec PO 81 mg DAILY BRIGHT Administration Dextrose 12.5 gm 02/09/20 12:07 Dextrose 50% Syringe IV PUSH PRN PRN Hypoglycemia Protocol Docusate Sodium 100 mg 02/11/20 09:00 02/17/20 07:44 Colace Capsule PO 100 mg Q12HR BRIGHT Administration Enoxaparin Sodium 40 mg 02/10/20 09:00 02/17/20 07:45 Lovenox SUB-Q 40 mg DAILY BRIGHT Administration Glucagon 1 mg 02/09/20 12:07 Glucagon For Inj IM PRN PRN Hypoglycemia Protocol Glucose 15 gm 02/09/20 12:07 Glutose 15 PO PRN PRN Hypoglycemia Protocol Dextrose 1,000 mls @ 100 mls/hr 02/09/20 12:07 Dextrose 5% 1,000 Ml IVPB PRN PRN Hypoglycemia Protocol Insulin Aspart 6 units 02/09/20 12:05 02/17/20 11:55 Novolog SUB-Q 6 units TIDWM BRIGHT Administration Insulin Aspart 2 - 5 units 02/09/20 17:00 02/17/20 11:54 Novolog SUB-Q Not Given TIDWM BRIGHT Protocol Insulin Glargine 20 units 02/09/20 21:00 02/16/20 20:29 Lantus SUB-Q Not Given HS BRIGHT Lactulose 30 gm 02/16/20 10:42 02/16/20 15:34 Lactulose PO 30 gm QAM PRN Administration Constipation Lisinopril 40 mg 02/07/20 09:00 02/17/20 07:45 Prinivil PO 40 mg DAILY BRIGHT Administration Metformin HCl 1,000 mg 02/06/20 17:00 02/17/20 07:44 Glucophage PO 1,000 mg BIDWM BRIGHT Administration Polyethylene Glycol 17 gm 02/17/20 09:00 02/17/20 07:45 Miralax PO Not Given DAILY BRIGHT Pravastatin Sodium 20 mg 02/06/20 21:00 02/16/20 20:25 Pravastatin Sodium PO 20 mg HS BRIGHT Administration Quetiapine Fumarate 50 mg 02/06/20 21:00 02/16/20 20:25 Seroquel PO 03/07/20 21:01 50 mg HS BRIGHT Administration Quetiapine Fumarate 200 mg 02/06/20 13:40 02/17/20 11:56 Seroquel PO 200 mg BID@0700,1200 BRIGHT Administration Tramadol HCl 50 mg 02/06/20 13:32 Ultram PO Q8H PRN Pain
[2020-02-17 14:00] VITALS: BP 113/60; PULSE 83; RESP 18; TEMP 36.3; O2SAT 99
[2020-02-17 17:10] LABS: Glucose Point of Care 128 (65-105)
[2020-02-17 21:04] LABS: Glucose Point of Care 157 (65-105)
[2020-02-17] MEDS: PRAVASTATIN SODIUM 20 MG TABLET PO (21:05)
[2020-02-17] MEDS: QUEtiapine FUMARATE 25 MG TABLET 50 MG PO (21:05)
[2020-02-17] MEDS: INSULIN GLARGINE (*BKC) 100 UNITS/ML 20 UNITS SUB-Q (21:05)
[2020-02-17 22:00] VITALS: BP 120/67; PULSE 72; RESP 18; TEMP 36.4; O2SAT 99
[2020-02-18 06:00] VITALS: BP 121/71; PULSE 64; RESP 18; TEMP 35.9; O2SAT 99
[2020-02-18] MEDS: QUEtiapine FUMARATE 100 MG TABLET 200 MG PO ×2 (06:40→11:53)
[2020-02-18 06:53] LABS: Glucose Point of Care 130 (65-105)
[2020-02-18] MEDS: INSULIN ASPART (*BKC) 100 UNITS/ML 6 UNITS SUB-Q (08:06)
[2020-02-18] MEDS: DOCUSATE SODIUM 100 MG CAPSULE PO ×2 (08:07→21:17)
[2020-02-18] MEDS: metFORMIN HCL 500 MG TABLET 1000 MG PO ×2 (08:07→17:15)
[2020-02-18] MEDS: ENOXAPARIN 40 MG/0.4 ML SYRINGE SUB-Q (08:07)
[2020-02-18] MEDS: ASPIRIN 81 MG ENTERIC TABLET PO (08:07)
[2020-02-18] MEDS: lisinopriL 20 MG TABLET 40 MG PO (08:07)
[2020-02-18] MEDS: polyethylene glycoL 3350 17 GM POWD.PACK PO (08:09)
--- NOTE | 2020-02-18 11:30 | PCCDE ---
diabetes education f/up: current insulin orders: 20 units Lantus HS, 6 units Novolog at meals, low dose correction. BG pattern noted; 1 episode of hypoglycemia noted on 02/15 at lunch with BG of 44mg/dl. Overall BG range for last 3 days has been 44-183mg/dl Noted nursing has held Lantus x 3 and Novolog x 2 in the last week. To prevent further hypoglycemia would recommend to reduce Lantus and Novolog by 20% to 16 units Lantus and 4 units Novolog AC. Discussed recommendation with JOHNY Bailey and Dr Garber. Pt was in rehab and n/a for visit.
--- NOTE | 2020-02-18 12:14 | WPDNEURORHBP ---
Subjective Date/time seen: 02/18/20 12:14 Interval history: this 59-year-old diabetic is here after having had stroke and left hemiparesis is improving quite a bit and making progress looking forward to be going home we can adjust some of his insulin based on the Accu-Cheks we have after the recommendations from the clinical unit educator patient denies any headache nausea vomiting chest pain shortness of breath fever chills or sore throat Review of Systems Review of Systems: All systems reviewed & are unremarkable except as noted in HPI and below Functional Status Ambulation Ability Ability to Ambulate 10 Feet: Moderate Assistance X 1 Ability to Ambulate 50 Feet With 2 Turns: Moderate Assistance X 1 Ability to Ambulate 150 Feet: Moderate Assistance X 1 Ambulation Assistive Devices: Walker, Wheeled Transfers Ability Ability to Transfer In/Out of Chair: Moderate Assistance X 1 Exam Const: General: comfortable and no acute distress HENMT: General nose exam: Normal nares present Mouth: Yes moist mucous membranes Eyes: General: appearance normal, both eyes and all related structures Neck: Neck: supple and no JVD Resp: Effort & Inspection: normal respiratory effort Auscultation: clear to auscultation bilaterally Cardio: Rate: regular rate Rhythm: regular rhythm GI: GI Palp: Yes Soft to palpation Auscultation: normal bowel sounds Skin: General skin exam: normal color and no rashes or lesions noted Neuro: Other: patient's mental status is normal cranial examination is normal and left-sided hemiparesis is improving to his satisfaction and also from our standpoint Extrem: General: normal to inspection Psych: Mental Status: mental status grossly normal Objective Data Vital Signs Vital Signs: Vital Signs - 24 hr 02/17/20 14:00 02/17/20 22:00 02/18/20 06:00 Temperature 36.3 C L 36.4 C 35.9 C L Pulse Rate 83 72 64 Respiratory Rate 18 18 18 Blood Pressure 113/60 120/67 121/71 Pulse Oximetry 99 99 99 Intake/Output Intake/Output: Intake & Output 02/15/20 02/16/20 02/17/20 02/18/20 23:59 23:59 23:59 23:59 Intake Total 720 720 600 240 Balance 720 720 600 240 Meds/Results Medications: Active Medications Generic Name Dose Route Start Last Admin Trade Name Freq PRN Reason Stop Dose Admin Aspirin 81 mg 02/07/20 09:00 02/18/20 08:07 Aspirin Ec PO 81 mg DAILY BRIGHT Administration Dextrose 12.5 gm 02/09/20 12:07 Dextrose 50% Syringe IV PUSH PRN PRN Hypoglycemia Protocol Docusate Sodium 100 mg 02/11/20 09:00 02/18/20 08:07 Colace Capsule PO 100 mg Q12HR BRIGHT Administration Enoxaparin Sodium 40 mg 02/10/20 09:00 02/18/20 08:07 Lovenox SUB-Q 40 mg DAILY BRIGHT Administration Glucagon 1 mg 02/09/20 12:07 Glucagon For Inj IM PRN PRN Hypoglycemia Protocol Glucose 15 gm 02/09/20 12:07 Glutose 15 PO PRN PRN Hypoglycemia Protocol Dextrose 1,000 mls @ 100 mls/hr 02/09/20 12:07 Dextrose 5% 1,000 Ml IVPB PRN PRN Hypoglycemia Protocol Insulin Aspart 2 - 5 units 02/09/20 17:00 02/18/20 11:54 Novolog SUB-Q Not Given TIDWM BRIGHT Protocol Insulin Aspart 4 units 02/18/20 12:00 Novolog 0.05 units/kg (4 units) SUB-Q TIDWM BRIGHT Insulin Glargine 16 units 02/18/20 21:00 Lantus 0.2 units/kg (16 units) SUB-Q HS BRIGHT Lactulose 30 gm 02/16/20 10:42 02/16/20 15:34 Lactulose PO 30 gm QAM PRN Administration Constipation Lisinopril 40 mg 02/07/20 09:00 02/18/20 08:07 Prinivil PO 40 mg DAILY BRIGHT Administration Metformin HCl 1,000 mg 02/06/20 17:00 02/18/20 08:07 Glucophage PO 1,000 mg BIDWM BRIGHT Administration Polyethylene Glycol 17 gm 02/17/20 09:00 02/18/20 08:09 Miralax PO 17 gm DAILY BRIGHT Administration Pravastatin Sodium 20 mg 02/06/20 21:00 02/17/20 21:05 Pravastatin Sodium PO 20 mg HS BRIGHT Administratio
[2020-02-18 12:25] LABS: Glucose Point of Care 76 (65-105)
[2020-02-18 14:00] VITALS: BP 132/79; PULSE 96; RESP 20; TEMP 36.5; O2SAT 99
[2020-02-18 16:58] LABS: Glucose Point of Care 192 (65-105)
[2020-02-18] MEDS: INSULIN ASPART (*BKC) 100 UNITS/ML SUB-Q (17:16)
[2020-02-18] MEDS: QUEtiapine FUMARATE 25 MG TABLET 50 MG PO (21:17)
[2020-02-18] MEDS: PRAVASTATIN SODIUM 20 MG TABLET PO (21:17)
[2020-02-18] MEDS: INSULIN GLARGINE (*BKC) 100 UNITS/ML 16 UNITS SUB-Q (21:18)
[2020-02-18 21:37] LABS: Glucose Point of Care 78 (65-105)
[2020-02-18 22:00] VITALS: BP 135/64; PULSE 73; RESP 18; TEMP 36.7; O2SAT 100
[2020-02-19 05:59] VITALS: BP 131/80; PULSE 62; RESP 18; TEMP 36.6; O2SAT 100
[2020-02-19] MEDS: QUEtiapine FUMARATE 100 MG TABLET 200 MG PO ×2 (06:45→12:25)
[2020-02-19 06:48] LABS: Glucose Point of Care 153 (65-105)
[2020-02-19] MEDS: metFORMIN HCL 500 MG TABLET 1000 MG PO ×2 (08:37→17:36)
[2020-02-19] MEDS: ENOXAPARIN 40 MG/0.4 ML SYRINGE SUB-Q (08:37)
[2020-02-19] MEDS: DOCUSATE SODIUM 100 MG CAPSULE PO ×2 (08:37→21:08)
[2020-02-19] MEDS: lisinopriL 20 MG TABLET 40 MG PO (08:37)
[2020-02-19] MEDS: ASPIRIN 81 MG ENTERIC TABLET PO (08:37)
[2020-02-19] MEDS: polyethylene glycoL 3350 17 GM POWD.PACK PO (08:37)
[2020-02-19] MEDS: INSULIN ASPART (*BKC) 100 UNITS/ML SUB-Q ×3 (08:42→17:36)
[2020-02-19 12:39] LABS: Glucose Point of Care 112 (65-105)
[2020-02-19 14:00] VITALS: BP 128/72; PULSE 64; RESP 20; TEMP 36.6; O2SAT 100
[2020-02-19 16:39] LABS: Glucose Point of Care 101 (65-105)
[2020-02-19] MEDS: QUEtiapine FUMARATE 25 MG TABLET 50 MG PO (21:00)
[2020-02-19] MEDS: PRAVASTATIN SODIUM 20 MG TABLET PO (21:08)
[2020-02-19 21:34] LABS: Glucose Point of Care 111 (65-105)
[2020-02-19 21:58] VITALS: BP 102/54; PULSE 75; RESP 18; TEMP 36.6; O2SAT 99
[2020-02-20 06:00] VITALS: BP 148/82; PULSE 65; RESP 18; TEMP 36.6; O2SAT 100
[2020-02-20] MEDS: QUEtiapine FUMARATE 100 MG TABLET 200 MG PO ×2 (06:00→12:18)
[2020-02-20 06:59] LABS: Glucose Point of Care 197 (65-105)
[2020-02-20 08:00] VITALS: PULSE 65; RESP 18; O2SAT 100
[2020-02-20] MEDS: DOCUSATE SODIUM 100 MG CAPSULE PO ×2 (09:38→20:05)
[2020-02-20] MEDS: metFORMIN HCL 500 MG TABLET 1000 MG PO ×2 (09:38→17:18)
[2020-02-20] MEDS: ENOXAPARIN 40 MG/0.4 ML SYRINGE SUB-Q (09:38)
[2020-02-20] MEDS: lisinopriL 20 MG TABLET 40 MG PO (09:38)
[2020-02-20] MEDS: ASPIRIN 81 MG ENTERIC TABLET PO (09:38)
[2020-02-20] MEDS: polyethylene glycoL 3350 17 GM POWD.PACK PO (09:39)
[2020-02-20] MEDS: INSULIN ASPART (*BKC) 100 UNITS/ML SUB-Q ×2 (09:42→12:17)
--- NOTE | 2020-02-20 12:20 | WPDNEURORHBP ---
Subjective Date/time seen: 02/20/20 12:20 Interval history: this 59-year-old is here after having had the stroke with improving left-sided hemiparesis he does not have any new specific complaints denies any headache nausea vomiting chest pain shortness of breath fever chills sore throat Review of Systems Review of Systems: All systems reviewed & are unremarkable except as noted in HPI and below Functional Status Ambulation Ability Ability to Ambulate 10 Feet: Moderate Assistance X 1 Ability to Ambulate 50 Feet With 2 Turns: Moderate Assistance X 1 Ability to Ambulate 150 Feet: Moderate Assistance X 1 Ambulation Assistive Devices: Walker, Wheeled Transfers Ability Ability to Transfer In/Out of Chair: Moderate Assistance X 1 Exam Const: General: comfortable and no acute distress HENMT: General nose exam: Normal nares present Mouth: Yes moist mucous membranes Eyes: General: appearance normal, both eyes and all related structures Neck: Neck: supple and no JVD Resp: Effort & Inspection: normal respiratory effort Auscultation: clear to auscultation bilaterally Cardio: Rate: regular rate Rhythm: regular rhythm GI: GI Palp: Yes Soft to palpation Auscultation: normal bowel sounds Skin: General skin exam: normal color and no rashes or lesions noted Neuro: Other: patient is awake and alert well oriented following commands quite well and improving neurological deficit which is mostly the left-sided and his doing quite well and happy with the results Extrem: General: normal to inspection Psych: Mental Status: mental status grossly normal Objective Data Vital Signs Vital Signs: Vital Signs - 24 hr 02/19/20 14:00 02/19/20 21:58 02/20/20 06:00 Temperature 36.6 C 36.6 C 36.6 C Pulse Rate 64 75 65 Respiratory Rate 20 18 18 Blood Pressure 128/72 102/54 L 148/82 H Pulse Oximetry 100 99 100 02/20/20 08:00 Temperature Pulse Rate 65 Respiratory Rate 18 Blood Pressure Pulse Oximetry 100 Intake/Output Intake/Output: Intake & Output 02/17/20 02/18/20 02/19/20 02/20/20 23:59 23:59 23:59 23:59 Intake Total 600 720 720 240 Balance 600 720 720 240 Meds/Results Medications: Active Medications Generic Name Dose Route Start Last Admin Trade Name Freq PRN Reason Stop Dose Admin Aspirin 81 mg 02/07/20 09:00 02/20/20 09:38 Aspirin Ec PO 81 mg DAILY BRIGHT Administration Dextrose 12.5 gm 02/09/20 12:07 Dextrose 50% Syringe IV PUSH PRN PRN Hypoglycemia Protocol Docusate Sodium 100 mg 02/11/20 09:00 02/20/20 09:38 Colace Capsule PO 100 mg Q12HR BRIGHT Administration Enoxaparin Sodium 40 mg 02/10/20 09:00 02/20/20 09:38 Lovenox SUB-Q 40 mg DAILY BRIGHT Administration Glucagon 1 mg 02/09/20 12:07 Glucagon For Inj IM PRN PRN Hypoglycemia Protocol Glucose 15 gm 02/09/20 12:07 Glutose 15 PO PRN PRN Hypoglycemia Protocol Dextrose 1,000 mls @ 100 mls/hr 02/09/20 12:07 Dextrose 5% 1,000 Ml IVPB PRN PRN Hypoglycemia Protocol Insulin Aspart 2 - 5 units 02/09/20 17:00 02/20/20 06:58 Novolog SUB-Q Not Given TIDWM BRIGHT Protocol Insulin Aspart 4 units 02/18/20 12:00 02/20/20 09:42 Novolog 0.05 units/kg (4 units) 4 units SUB-Q Administration TIDWM BRIGHT Insulin Glargine 16 units 02/18/20 21:00 02/19/20 21:12 Lantus 0.2 units/kg (16 units) Not Given SUB-Q BRIGHT Lactulose 30 gm 02/16/20 10:42 02/16/20 15:34 Lactulose PO 30 gm QAM PRN Administration Constipation Lisinopril 40 mg 02/07/20 09:00 02/20/20 09:38 Prinivil PO 40 mg DAILY BRIGHT Administration Metformin HCl 1,000 mg 02/06/20 17:00 02/20/20 09:38 Glucophage PO 1,000 mg BIDWM BRIGHT Administration Polyethylene Glycol 17 gm 02/17/20 09:00 02/20/20 09:39 Miralax PO 17 gm DAILY BRIGHT Administration Pravastatin Sodium 20 mg 02/06/20 21:00 02/19/20 21:08 P
[2020-02-20 14:00] VITALS: BP 120/78; PULSE 90; RESP 20; TEMP 36.8; O2SAT 100
[2020-02-20 17:15] LABS: Glucose Point of Care 91 (65-105)
[2020-02-20] MEDS: PRAVASTATIN SODIUM 20 MG TABLET PO (20:06)
[2020-02-20] MEDS: QUEtiapine FUMARATE 25 MG TABLET 50 MG PO (20:06)
[2020-02-20 22:00] VITALS: BP 123/49; PULSE 57; RESP 18; TEMP 36.4; O2SAT 99
[2020-02-20 22:01] LABS: Glucose Point of Care 172 (65-105)
[2020-02-21 05:43] LABS: Basophils Absolute Auto 0.1 K/mm3 (0.0-0.1); Basophils Percent Auto 0.8 % (0.2-1.2); Eosinophils Absolute Auto 0.2 K/mm3 (0-0.3); Eosinophils Percent Auto 3.2 % (0-4.4); Hematocrit 41.7 % (42.0-52.0); Hemoglobin 13.7 g/dL (14.0-18.0); Immature Granulocyte Absolute 0.06 K/mm3 (0.00-0.031); Immature Granulocyte Percent A 0.9 % (0-0.5); Lymphocytes Absolute Auto 2.28 K/mm3 (0.9-3.2); Lymphocytes Percent Auto 34.8 % (18.3-44.2); Mean Corpuscular HGB Conc 32.9 g/dl (32-36); Mean Corpuscular Hemoglobin 29.4 pg (26-34); Mean Corpuscular Volume 89.5 fl (80-100); Mean Platelet Volume 9.5 fl (7.4-10.4); Monocytes Absolute Auto 0.5 K/mm3 (0.1-0.6); Monocytes Percent Auto 8.1 % (2.6-8.5); Neutrophils Absolute Auto 3.4 K/mm3 (1.3-6.7); Neutrophils Percent Auto 52.2 % (45.5-73.1); Platelet Count Result 387 k/mm3 (150-375); Red Blood Count 4.66 M/mm3 (4.6-6.20); Red Cell Distribution Width 12.6 % (11.5-14.5); White Blood Count 6.6 K/mm3 (4.5-10.0)
[2020-02-21 05:57] LABS: Blood Urea Nitrogen 28 mg/dL (9-20); Calcium 9.4 mg/dL (8.4-10.2); Carbon Dioxide 28 mmol/L (22-30); Chloride 103 mmol/L (98-107); Estimated CRCL calculation 85 ml/min; Estimated Glomerular Filt Rate > 60; Glucose 185 mg/dL (75-110); Potassium 4.9 mmol/L (3.4-5.0); Sodium 136 mmol/L (137-145)
[2020-02-21 06:00] VITALS: BP 149/78; PULSE 64; RESP 18; TEMP 36.5; O2SAT 100
[2020-02-21] MEDS: QUEtiapine FUMARATE 100 MG TABLET 200 MG PO ×2 (06:35→12:33)
[2020-02-21 06:47] LABS: Glucose Point of Care 188 (65-105)
[2020-02-21] MEDS: INSULIN ASPART (*BKC) 100 UNITS/ML SUB-Q ×4 (08:52→17:27)
[2020-02-21] MEDS: metFORMIN HCL 500 MG TABLET 1000 MG PO ×2 (08:53→17:28)
[2020-02-21] MEDS: ENOXAPARIN 40 MG/0.4 ML SYRINGE SUB-Q (08:54)
[2020-02-21] MEDS: DOCUSATE SODIUM 100 MG CAPSULE PO ×2 (08:54→20:47)
[2020-02-21] MEDS: ASPIRIN 81 MG ENTERIC TABLET PO (08:54)
[2020-02-21] MEDS: lisinopriL 20 MG TABLET 40 MG PO (08:55)
[2020-02-21] MEDS: polyethylene glycoL 3350 17 GM POWD.PACK PO (08:55)
[2020-02-21 12:31] LABS: Glucose Point of Care 209 (65-105)
[2020-02-21 14:00] VITALS: BP 106/68; PULSE 97; RESP 20; TEMP 36.5; O2SAT 98
--- NOTE | 2020-02-21 16:24 | WPDNEURORHBP ---
Subjective Date/time seen: 02/21/20 16:24 Interval history: This 59-year-old diabetic white male is here after having had right hemispheric stroke with left-sided hemiparesis his diabetes is fairly decently controlled his making progress in the rehab and does not have any specific complaints He denies any headache nausea vomiting chest pain shortness of breath fever chills sore throat the laboratory data obtained today is fairly decent Review of Systems Review of Systems: All systems reviewed & are unremarkable except as noted in HPI and below Functional Status Ambulation Ability Ability to Ambulate 10 Feet: Moderate Assistance X 1 Ability to Ambulate 50 Feet With 2 Turns: Moderate Assistance X 1 Ability to Ambulate 150 Feet: Moderate Assistance X 1 Ambulation Assistive Devices: Walker, Wheeled Transfers Ability Ability to Transfer In/Out of Chair: Moderate Assistance X 1 Exam HENMT: General nose exam: Normal nares present Mouth: Yes moist mucous membranes Eyes: General: appearance normal, both eyes and all related structures Neck: Neck: supple and no JVD Resp: Effort & Inspection: normal respiratory effort Auscultation: clear to auscultation bilaterally Cardio: Rate: regular rate Rhythm: regular rhythm GI: GI Palp: Yes Soft to palpation Auscultation: normal bowel sounds Skin: General skin exam: normal color and no rashes or lesions noted Neuro: Other: patient is awake alert and well oriented time place and person with normal speech and language function normal cranial examination and improving left-sided hemiparesis Extrem: General: normal to inspection Psych: Mental Status: mental status grossly normal Objective Data Vital Signs Vital Signs: Vital Signs - 24 hr 02/20/20 22:00 02/21/20 06:00 02/21/20 14:00 Temperature 36.4 C 36.5 C 36.5 C Pulse Rate 57 L 64 97 Respiratory Rate 18 18 20 Blood Pressure 123/49 L 149/78 H 106/68 Pulse Oximetry 99 100 98 Intake/Output Intake/Output: Intake & Output 02/18/20 02/19/20 02/20/20 02/21/20 23:59 23:59 23:59 23:59 Intake Total 720 720 720 480 Balance 720 720 720 480 Meds/Results Medications: Active Medications Generic Name Dose Route Start Last Admin Trade Name Freq PRN Reason Stop Dose Admin Aspirin 81 mg 02/07/20 09:00 02/21/20 08:54 Aspirin Ec PO 81 mg DAILY BRIGHT Administration Dextrose 12.5 gm 02/09/20 12:07 Dextrose 50% Syringe IV PUSH PRN PRN Hypoglycemia Protocol Docusate Sodium 100 mg 02/11/20 09:00 02/21/20 08:54 Colace Capsule PO 100 mg Q12HR BRIGHT Administration Enoxaparin Sodium 40 mg 02/10/20 09:00 02/21/20 08:54 Lovenox SUB-Q 40 mg DAILY BRIGHT Administration Glucagon 1 mg 02/09/20 12:07 Glucagon For Inj IM PRN PRN Hypoglycemia Protocol Glucose 15 gm 02/09/20 12:07 Glutose 15 PO PRN PRN Hypoglycemia Protocol Dextrose 1,000 mls @ 100 mls/hr 02/09/20 12:07 Dextrose 5% 1,000 Ml IVPB PRN PRN Hypoglycemia Protocol Insulin Aspart 2 - 5 units 02/09/20 17:00 02/21/20 12:34 Novolog SUB-Q 2 units TIDWM BRIGHT Administration Protocol Insulin Aspart 4 units 02/18/20 12:00 02/21/20 12:34 Novolog 0.05 units/kg (4 units) 4 units SUB-Q Administration TIDWM BRIGHT Insulin Glargine 16 units 02/18/20 21:00 02/20/20 20:09 Lantus 0.2 units/kg (16 units) Not Given SUB-Q HS BRIGHT Lactulose 30 gm 02/16/20 10:42 02/16/20 15:34 Lactulose PO 30 gm QAM PRN Administration Constipation Lisinopril 40 mg 02/07/20 09:00 02/21/20 08:55 Prinivil PO 40 mg DAILY BRIGHT Administration Metformin HCl 1,000 mg 02/06/20 17:00 02/21/20 08:53 Glucophage PO 1,000 mg BIDWM BRIGHT Administration Polyethylene Glycol 17 gm 02/17/20 09:00 02/21/20 08:55 Miralax PO 17 gm DAILY BRIGHT Administration Pravastatin Sodium 20 mg 02/06/20 21:00 02/20/20 20:06 Pravastatin S
[2020-02-21 17:18] LABS: Glucose Point of Care 145 (65-105)
[2020-02-21] MEDS: PRAVASTATIN SODIUM 20 MG TABLET PO (20:47)
[2020-02-21] MEDS: QUEtiapine FUMARATE 25 MG TABLET 50 MG PO (20:47)
[2020-02-21] MEDS: INSULIN GLARGINE (*BKC) 100 UNITS/ML 16 UNITS SUB-Q (20:51)
[2020-02-21 21:41] LABS: Glucose Point of Care 171 (65-105)
[2020-02-21 22:00] VITALS: BP 116/59; PULSE 78; RESP 18; TEMP 36.3; O2SAT 98
[2020-02-22 06:00] VITALS: BP 122/68; PULSE 66; RESP 18; TEMP 36.4; O2SAT 100
[2020-02-22] MEDS: QUEtiapine FUMARATE 100 MG TABLET 200 MG PO ×2 (06:35→12:36)
[2020-02-22 06:37] LABS: Glucose Point of Care 241 (65-105)
[2020-02-22] MEDS: INSULIN ASPART (*BKC) 100 UNITS/ML SUB-Q ×3 (07:12→18:23)
[2020-02-22 07:56] LABS: Glucose Point of Care 187 (65-105)
[2020-02-22] MEDS: ASPIRIN 81 MG ENTERIC TABLET PO (08:41)
[2020-02-22] MEDS: DOCUSATE SODIUM 100 MG CAPSULE PO ×2 (08:41→20:54)
[2020-02-22] MEDS: metFORMIN HCL 500 MG TABLET 1000 MG PO ×2 (08:41→18:23)
[2020-02-22] MEDS: lisinopriL 20 MG TABLET 40 MG PO (08:41)
[2020-02-22] MEDS: ENOXAPARIN 40 MG/0.4 ML SYRINGE SUB-Q (08:41)
[2020-02-22] MEDS: polyethylene glycoL 3350 17 GM POWD.PACK PO (08:41)
[2020-02-22 12:28] LABS: Glucose Point of Care 149 (65-105)
[2020-02-22 14:00] VITALS: BP 124/73; PULSE 87; RESP 20; TEMP 37.1; O2SAT 100
[2020-02-22 17:33] LABS: Glucose Point of Care 132 (65-105)
--- NOTE | 2020-02-22 17:41 | WPDNEURORHBP ---
Subjective Date/time seen: 02/22/20 17:41 Interval history: this 59-year-old is here with right hemispheric stroke and repeat rating quite well left-sided hemiparesis is improving in and his walking quite a bit denies any headache nausea vomiting chest pain shortness of breath fever chills sore throat Review of Systems Review of Systems: All systems reviewed & are unremarkable except as noted in HPI and below Functional Status Ambulation Ability Ability to Ambulate 10 Feet: Moderate Assistance X 1 Ability to Ambulate 50 Feet With 2 Turns: Moderate Assistance X 1 Ability to Ambulate 150 Feet: Moderate Assistance X 1 Ambulation Assistive Devices: Walker, Wheeled Transfers Ability Ability to Transfer In/Out of Chair: Moderate Assistance X 1 Exam Const: General: comfortable and no acute distress HENMT: General nose exam: Normal nares present Mouth: Yes moist mucous membranes Eyes: General: appearance normal, both eyes and all related structures Neck: Neck: supple and no JVD Resp: Effort & Inspection: normal respiratory effort Auscultation: clear to auscultation bilaterally Cardio: Rate: regular rate Rhythm: regular rhythm GI: GI Palp: Yes Soft to palpation Auscultation: normal bowel sounds Skin: General skin exam: normal color and no rashes or lesions noted Neuro: Other: improving left-sided hemiparesis Extrem: General: normal to inspection Psych: Mental Status: mental status grossly normal Objective Data Vital Signs Vital Signs: Vital Signs - 24 hr 02/21/20 22:00 02/22/20 06:00 02/22/20 14:00 Temperature 36.3 C L 36.4 C L 37.1 C Pulse Rate 78 66 87 Respiratory Rate 18 18 20 Blood Pressure 116/59 L 122/68 124/73 Pulse Oximetry 98 100 100 Intake/Output Intake/Output: Intake & Output 02/19/20 02/20/20 02/21/20 02/22/20 23:59 23:59 23:59 23:59 Intake Total 720 720 720 480 Balance 720 720 720 480 Meds/Results Medications: Active Medications Generic Name Dose Route Start Last Admin Trade Name Freq PRN Reason Stop Dose Admin Aspirin 81 mg 02/07/20 09:00 02/22/20 08:41 Aspirin Ec PO 81 mg DAILY BRIGHT Administration Dextrose 12.5 gm 02/09/20 12:07 Dextrose 50% Syringe IV PUSH PRN PRN Hypoglycemia Protocol Docusate Sodium 100 mg 02/11/20 09:00 02/22/20 08:41 Colace Capsule PO 100 mg Q12HR BRIGHT Administration Enoxaparin Sodium 40 mg 02/10/20 09:00 02/22/20 08:41 Lovenox SUB-Q 40 mg DAILY BRIGHT Administration Glucagon 1 mg 02/09/20 12:07 Glucagon For Inj IM PRN PRN Hypoglycemia Protocol Glucose 15 gm 02/09/20 12:07 Glutose 15 PO PRN PRN Hypoglycemia Protocol Dextrose 1,000 mls @ 100 mls/hr 02/09/20 12:07 Dextrose 5% 1,000 Ml IVPB PRN PRN Hypoglycemia Protocol Insulin Aspart 2 - 5 units 02/09/20 17:00 02/22/20 12:38 Novolog SUB-Q Not Given TIDWM [facility] Protocol Insulin Aspart 4 units 02/18/20 12:00 02/22/20 12:37 Novolog 0.05 units/kg (4 units) 4 units SUB-Q Administration TIDWM [facility] Insulin Glargine 16 units 02/18/20 21:00 02/21/20 20:51 Lantus 0.2 units/kg (16 units) 16 units SUB-Q Administration HS BRIGHT Lactulose 30 gm 02/16/20 10:42 02/16/20 15:34 Lactulose PO 30 gm QAM PRN Administration Constipation Lisinopril 40 mg 02/07/20 09:00 02/22/20 08:41 Prinivil PO 40 mg DAILY BRIGHT Administration Metformin HCl 1,000 mg 02/06/20 17:00 02/22/20 08:41 Glucophage PO 1,000 mg BIDWM BRIGHT Administration Polyethylene Glycol 17 gm 02/17/20 09:00 02/22/20 08:41 Miralax PO 17 gm DAILY BRIGHT Administration Pravastatin Sodium 20 mg 02/06/20 21:00 02/21/20 20:47 Pravastatin Sodium PO 20 mg HS BRIGHT Administration Quetiapine Fumarate 50 mg 02/06/20 21:00 02/21/20 20:47 Seroquel PO 03/07/20 21:01 50 mg HS BRIGHT Administration Quetiapine Fumarate 200 mg 02/06/20 13:40 0
[2020-02-22] MEDS: QUEtiapine FUMARATE 25 MG TABLET 50 MG PO (20:53)
[2020-02-22] MEDS: PRAVASTATIN SODIUM 20 MG TABLET PO (20:54)
[2020-02-22] MEDS: INSULIN GLARGINE (*BKC) 100 UNITS/ML 16 UNITS SUB-Q (20:57)
[2020-02-22 21:09] LABS: Glucose Point of Care 169 (65-105)
[2020-02-22 21:35] VITALS: BP 131/85; PULSE 82; RESP 18; TEMP 36.3; O2SAT 100
[2020-02-23 06:00] VITALS: BP 134/82; PULSE 64; RESP 18; TEMP 36.6; O2SAT 100
[2020-02-23] MEDS: QUEtiapine FUMARATE 100 MG TABLET 200 MG PO ×2 (06:02→12:26)
[2020-02-23 06:32] LABS: Glucose Point of Care 138 (65-105)
[2020-02-23 08:00] VITALS: PULSE 64; RESP 18; O2SAT 100
[2020-02-23] MEDS: lisinopriL 20 MG TABLET 40 MG PO (08:37)
[2020-02-23] MEDS: metFORMIN HCL 500 MG TABLET 1000 MG PO ×2 (08:37→16:52)
[2020-02-23] MEDS: DOCUSATE SODIUM 100 MG CAPSULE PO ×2 (08:37→19:48)
[2020-02-23] MEDS: ASPIRIN 81 MG ENTERIC TABLET PO (08:37)
[2020-02-23] MEDS: ENOXAPARIN 40 MG/0.4 ML SYRINGE SUB-Q (08:37)
[2020-02-23] MEDS: polyethylene glycoL 3350 17 GM POWD.PACK PO (08:38)
[2020-02-23] MEDS: INSULIN ASPART (*BKC) 100 UNITS/ML SUB-Q ×2 (08:41→12:26)
--- NOTE | 2020-02-23 10:28 | WPDNEURORHBP ---
Subjective Date/time seen: 02/23/20 10:28 right hemispheric stroke with Hypertension ,DM and Tobacco abuse doing fairly well Review of Systems Review of Systems: All systems reviewed & are unremarkable except as noted in HPI and below Functional Status Ambulation Ability Ability to Ambulate 10 Feet: Moderate Assistance X 1 Ability to Ambulate 50 Feet With 2 Turns: Moderate Assistance X 1 Ability to Ambulate 150 Feet: Moderate Assistance X 1 Ambulation Assistive Devices: Walker, Wheeled Transfers Ability Ability to Transfer In/Out of Chair: Moderate Assistance X 1 Exam Const: General: comfortable, no acute distress, alert and awake Nutritional Appearance: average body habitus HENMT: Head: normal to inspection General nose exam: No nasal discharge present Eyes: General: appearance normal, both eyes and all related structures Alignment and Position: alignment normal Periorbital: periorbital findings normal Eyelids: eyelids normal Conjunctivae: conjunctivae normal Sclera: sclerae normal Cornea: corneas normal Pupils: Equal, round and reactive pupils present EOM: EOMs intact bilaterally Direct Ophthalmoscopy: normal light reflex Neck: Neck: full ROM Lymphatic: no lymphadenopathy noted Resp: Effort & Inspection: normal respiratory effort Auscultation: clear to auscultation bilaterally Cardio: Rate: regular rate Rhythm: regular rhythm GI: Percussion: Yes normal to percussion Auscultation: normal bowel sounds Skin: General skin exam: no rashes or lesions noted Neuro: General: patient oriented x3 and moves all extremities Cranial nerves: Yes Equal, round and reactive pupils present, Yes Bilaterally intact EOM present, Yes Nystagmus not present, Yes Midline tongue present, Yes Ability to bilaterally rotate head present and Yes Ability to bilaterally elevate shoulders present Speech: normal speech Gait exam (Neuro): Assisted gait required Motor exam (neuro): Abnormal motor strength present (left hemiparesis) Sensory Exam: Sensory deficit (Neuro) Extrem: General: normal to inspection Objective Data Vital Signs Vital Signs: Vital Signs - 24 hr 02/22/20 14:00 02/22/20 21:35 02/23/20 06:00 Temperature 37.1 C 36.3 C L 36.6 C Pulse Rate 87 82 64 Respiratory Rate 20 18 18 Blood Pressure 124/73 131/85 134/82 Pulse Oximetry 100 100 100 Intake/Output Intake/Output: Intake & Output 02/20/20 02/21/20 02/22/20 02/23/20 23:59 23:59 23:59 23:59 Intake Total 720 720 720 240 Balance 720 720 720 240 Meds/Results Medications: Active Medications Generic Name Dose Route Start Last Admin Trade Name Freq PRN Reason Stop Dose Admin Aspirin 81 mg 02/07/20 09:00 02/23/20 08:37 Aspirin Ec PO 81 mg DAILY BRIGHT Administration Dextrose 12.5 gm 02/09/20 12:07 Dextrose 50% Syringe IV PUSH PRN PRN Hypoglycemia Protocol Docusate Sodium 100 mg 02/11/20 09:00 02/23/20 08:37 Colace Capsule PO 100 mg Q12HR BRIGHT Administration Enoxaparin Sodium 40 mg 02/10/20 09:00 02/23/20 08:37 Lovenox SUB-Q 40 mg DAILY BRIGHT Administration Glucagon 1 mg 02/09/20 12:07 Glucagon For Inj IM PRN PRN Hypoglycemia Protocol Glucose 15 gm 02/09/20 12:07 Glutose 15 PO PRN PRN Hypoglycemia Protocol Dextrose 1,000 mls @ 100 mls/hr 02/09/20 12:07 Dextrose 5% 1,000 Ml IVPB PRN PRN Hypoglycemia Protocol Insulin Aspart 2 - 5 units 02/09/20 17:00 02/23/20 08:38 Novolog SUB-Q Not Given TIDWM [facility] Protocol Insulin Aspart 4 units 02/18/20 12:00 02/23/20 08:41 Novolog 0.05 units/kg (4 units) 4 units SUB-Q Administration TIDWM BRIGHT Insulin Glargine 16 units 02/18/20 21:00 02/22/20 20:57 Lantus 0.2 units/kg (16 units) 16 units SUB-Q Administration HS BRIGHT Lactulose 30 gm 02/16/20 10:42 02/16/20 15:34 Lactulose PO 30 gm QAM PRN Administration Constipation Lisinopril 40 mg
[2020-02-23 11:10] LABS: SARS-CoV-2 RNA PCR Negative
--- NOTE | 2020-02-23 11:46 | PCDIET ---
Nutrition Follow-Up Complete: Decreased saturated fat/cholesterol needs related to cardiovascular disease as evidenced by CVA. Patient to consume 75% of meals or greater. Goal:Goal met. Continue goal. Pt current nutrition is DBCC. Nutrition recommendation: Agree Last recorded weight is 80 kg (recommend updated wt) Bowel Motility: 02/21 BM + Labs Reviewed:glucose 138 Meds Noted: colace, metformin, insulin, tramadol, lactulose, miralax Additional Notes: Pt with good appetite, eating 100% of all meals. No questions regarding diet today. Following every seven days.
[2020-02-23 12:11] LABS: Glucose Point of Care 122 (65-105)
[2020-02-23 14:00] VITALS: BP 122/64; PULSE 82; RESP 20; TEMP 36.8; O2SAT 97
[2020-02-23 16:44] LABS: Glucose Point of Care 106 (65-105)
[2020-02-23] MEDS: PRAVASTATIN SODIUM 20 MG TABLET PO (19:48)
[2020-02-23] MEDS: QUEtiapine FUMARATE 25 MG TABLET 50 MG PO (19:48)
[2020-02-23] MEDS: INSULIN GLARGINE (*BKC) 100 UNITS/ML 16 UNITS SUB-Q (20:25)
[2020-02-23 21:13] LABS: Glucose Point of Care 186 (65-105)
[2020-02-23 22:00] VITALS: BP 157/73; PULSE 69; RESP 18; TEMP 36.6; O2SAT 100
[2020-02-24 06:00] VITALS: BP 124/72; PULSE 66; RESP 18; TEMP 36.7; O2SAT 100
[2020-02-24] MEDS: QUEtiapine FUMARATE 100 MG TABLET 200 MG PO ×2 (06:06→13:25)
[2020-02-24 06:46] LABS: Glucose Point of Care 117 (65-105)
[2020-02-24] MEDS: metFORMIN HCL 500 MG TABLET 1000 MG PO (09:46)
[2020-02-24] MEDS: ASPIRIN 81 MG ENTERIC TABLET PO (09:46)
[2020-02-24] MEDS: ENOXAPARIN 40 MG/0.4 ML SYRINGE SUB-Q (09:47)
[2020-02-24] MEDS: polyethylene glycoL 3350 17 GM POWD.PACK PO (09:47)
[2020-02-24] MEDS: DOCUSATE SODIUM 100 MG CAPSULE PO (09:47)
[2020-02-24] MEDS: lisinopriL 20 MG TABLET 40 MG PO (09:47)
[2020-02-24] MEDS: INSULIN ASPART (*BKC) 100 UNITS/ML SUB-Q ×3 (09:55→13:25)
[2020-02-24 11:32] LABS: Glucose Point of Care 219 (65-105)
[2020-02-24 14:00] VITALS: BP 137/77; PULSE 83; RESP 20; TEMP 35.9; O2SAT 100
--- NOTE | 2020-02-27 14:04 | PM.DS ---
DS: Admitting Diagnosis Admitting Diagnosis Admitting Diagnosis: Other cerebral infarction DS: Discharge Diagnosis Discharge Diagnosis (1) Hemiparesis of left nondominant side: Code(s): G81.94 - Hemiplegia, unspecified affecting left nondominant side Status: Acute (2) Tobacco abuse: Code(s): Z72.0 - Tobacco use Status: Acute (3) Alcohol use: Code(s): Z72.89 - Other problems related to lifestyle Status: Acute (4) Diabetes mellitus: Code(s): E11.9 - Type 2 diabetes mellitus without complications Status: Acute (5) Hypertension: Code(s): I10 - Essential (primary) hypertension Status: Acute (6) Stroke: Code(s): I63.9 - Cerebral infarction, unspecified Status: Acute DS: Summary Hospital Course Reason for hospitalization: this 59-year-old diabetic male was admitted after having had a stroke which has left him with left-sided hemiparesis along with history of tobacco abuse Hospital Course: patient received extensive physical therapy of compression therapy and gait training and was able to achieved the following independent measures. Eating independent oral hygiene independent toileting setup bathing partial assistance upper body dressing setup lower body dressing partial assistance foot where supervision rolling in bed independent sitting to lying supervision lying to sitting supervision sit to stand partial assistance chair transfers partial assistance toilet transfers supervision car transfers partial assistance walking 10 feet partial assistance walking 50 feet with 2 turns partial assistance walking 50 feet with 2 turns partial assistance walking 150 feet partial assistance walking 10 feet uneven surfaces partial assistance carb are set up partial assistance 4 steps partial assistance 12 steps patient was unable to do it became of object partial assistance wheelchair 50 feet set up wheelchair and 50 feet set up the patient was transferred to the fdc facility without any falls Time Spent with Patient Time attestation: Total time spent providing and/or coordinating discharge services: Exam Const: General: comfortable and no acute distress HENMT: General nose exam: Normal nares present Mouth: Yes dry mucous membranes Eyes: General: appearance normal, both eyes and all related structures Neck: Neck: supple and no JVD Resp: Effort & Inspection: normal respiratory effort Auscultation: clear to auscultation bilaterally Cardio: Rate: regular rate Rhythm: regular rhythm GI: GI Palp: Yes Soft to palpation Auscultation: normal bowel sounds Skin: General skin exam: normal color and no rashes or lesions noted Neuro: Other: patient has significantly improved from the time he was admitted please refer to my initial history and physical examination follow-up notes Extrem: General: normal to inspection Psych: Mental Status: mental status grossly normal Discharge Plan Discharge Attending physician on discharge: Pepe Garber Discharging Clinician: Pepe Garber Anticipated Discharge Date/Time: 02/24/20 13:05 Patient Disposition: SNF Activity: may shower and no driving Diet: diabetic Patient Instructions: How to Stop Smoking (DC), Heart Healthy Diet (DC), Pain Management (DC), Foot Care for People with Diabetes (DC), Basic Carbohydrate Counting (DC), Meal Planning with Diabetes Exchanges (DC), Managing Diabetes During Sick Days (DC), Diabetic Hyperglycemia (DC), Type 2 Diabetes Management for Adults (DC) Stand Alone Forms: General Discharge Information Follow-up/Referrals: Dr. Pitts [Other] - Call for Appointment (call for follow up appt in 6 weeks. ) Discharge Medications: New quetiapine [Seroquel] 25 mg Tablet 50 mg PO HS Qty: 0 RF: 0 polyethylene glycol 3350 [Miralax] 17 gram Powder In Packet 17 g PO DAILY Qty: 0 RF: 0 quetiapine [Seroquel] 100 mg Tablet 200 mg PO BID@0700,1200 Qty: 0 RF: 0 doc
== END 2020-02-24 15:17 | DRG 57 ==
PROVIDERS: Admitting Provider Psychiatry & Neurology Neurology; Visit Provider Psychiatry & Neurology Neurology
DX: I69.354 Hemiplegia and hemiparesis following cerebral infarction affecting left non-dominant side (principal); I69.322 Dysarthria following cerebral infarction; S70.02XD Contusion of left hip, subsequent encounter; E11.9 Type 2 diabetes mellitus without complications; E78.5 Hyperlipidemia, unspecified; F17.210 Nicotine dependence, cigarettes, uncomplicated; I10 Essential (primary) hypertension; R29.6 Repeated falls; Z79.4 Long term (current) use of insulin
CPT/HCPCS: 36415; 80048; 83036; 85025; 87635; 97110; 97116; 97162; 97166; 97530; 97535; 97542; A9270; C9803; J1650; J1815; U0003

== ENCOUNTER 2020-04-27 19:30 | IRF | payer MEDICARE, MEDICAID, SELFPAY ==
--- NOTE | 2020-04-27 19:43 | ADMGEN ---
This patient, Edward Snyder, was admitted to [facility] Room 224-01. Patient/family oriented to hospital policies and general routines including ID bracelet, bed and alarms, visiting hours, pain management, procedures, bathroom and other care routines, personal items, smoking policy, room service/diet, and visiting hours. Valuables list has been completed. Information on how to activate the Rapid Response Team has been discussed. Patient/Family are encouraged to report perceived risks to care and to ask questions if they do not understand what they are told or what they should do.
[2020-04-27 21:13] VITALS: BP 116/72; PULSE 74; RESP 18; TEMP 36.3; O2SAT 96; BMI 24.4
[2020-04-27 22:58] LABS: Glucose Point of Care 208 (65-105)
[2020-04-27] MEDS: CYANOCOBALAMIN 1,000 MCG TABLET 2000 MCG PO (23:00)
[2020-04-27] MEDS: INSULIN GLARGINE (*BKC) 100 UNITS/ML 30 UNITS SUB-Q (23:00)
[2020-04-27] MEDS: ATORVASTATIN 40 MG TABLET PO (23:00)
[2020-04-28 04:52] LABS: Basophils Absolute Auto 0.1 K/mm3 (0.0-0.1); Basophils Percent Auto 0.9 % (0.2-1.2); Eosinophils Absolute Auto 0.2 K/mm3 (0-0.3); Eosinophils Percent Auto 2.5 % (0-4.4); Hematocrit 34.1 % (42.0-52.0); Hemoglobin 11.7 g/dL (14.0-18.0); Immature Granulocyte Absolute 0.07 K/mm3 (0.00-0.031); Lymphocytes Absolute Auto 2.69 K/mm3 (0.9-3.2); Lymphocytes Percent Auto 38.9 % (18.3-44.2); Mean Corpuscular HGB Conc 34.3 g/dl (32-36); Mean Corpuscular Hemoglobin 28.9 pg (26-34); Mean Corpuscular Volume 84.2 fl (80-100); Mean Platelet Volume 9.8 fl (7.4-10.4); Monocytes Absolute Auto 0.8 K/mm3 (0.1-0.6); Monocytes Percent Auto 11.3 % (2.6-8.5); Neutrophils Absolute Auto 3.2 K/mm3 (1.3-6.7); Neutrophils Percent Auto 45.4 % (45.5-73.1); Platelet Count Result 357 k/mm3 (150-375); Red Blood Count 4.05 M/mm3 (4.6-6.20); Red Cell Distribution Width 12.9 % (11.5-14.5); White Blood Count 6.9 K/mm3 (4.5-10.0)
[2020-04-28 05:11] LABS: Anion Gap 5 mmol/L (8-16); Blood Urea Nitrogen 15 mg/dL (9-20); Calcium 9.2 mg/dL (8.4-10.2); Carbon Dioxide 29 mmol/L (22-30); Chloride 101 mmol/L (98-107); Estimated CRCL calculation 100 ml/min; Estimated Glomerular Filt Rate > 60; Glucose 186 mg/dL (75-110); Potassium 4.3 mmol/L (3.4-5.0); Sodium 135 mmol/L (137-145)
[2020-04-28 05:19] VITALS: BP 107/64; PULSE 61; RESP 18; TEMP 36.3; O2SAT 100
[2020-04-28 06:35] LABS: Hemoglobin A1C 12.9 % (<5.7)
[2020-04-28 07:03] LABS: Glucose Point of Care 183 (65-105)
[2020-04-28] MEDS: metFORMIN HCL 500 MG TABLET 1000 MG PO ×2 (08:36→17:11)
[2020-04-28] MEDS: amLODIPine BESYLATE 5 MG TABLET 10 MG PO (08:36)
[2020-04-28] MEDS: lisinopriL 20 MG TABLET 40 MG PO (08:37)
[2020-04-28] MEDS: APIXABAN 5 MG TABLET PO ×2 (08:37→17:11)
[2020-04-28] MEDS: INSULIN ASPART (*BKC) 100 UNITS/ML 7 UNITS SUB-Q ×3 (08:38→17:36)
--- NOTE | 2020-04-28 10:30 | WPDREHABHP ---
H&P: HPI History of Present Illness Date/Time: 04/28/20 12:15 Chief complaint: CVA Narrative: Edward Snyder is a 59 year old maleHISTORY OF PRESENT ILLNESS: The patient's primary rehab impairment category is stroke The etiologic diagnosis is acute right-sided CVA I saw this patient [id number] on on April 28, 2020 at 10:30 a.m. The patient is a 59-year-old right-handed white male with a past medical history of hypertension, hyperlipidemia, uncontrolled diabetes mellitus and prior right-sided stroke who presented to [facility] on April 23, 2020 at the urging of his home health physical therapist. Of note the patient had a new onset of slurring of the speech that started about 2 days prior to presentation. He arrived to the hospital via EMS. The patient reported that following inpatient acute rehab [facility] he was transferred extended care facility and was not told to continue his insulin at the time. Initial glucose in the emergency room was 480. The patient was given IV fluids and insulin and repeat blood glucose was 292. Patient has improved speech improved minimally. CT of head demonstrated multiple old focal deep white matter infarcts in both cerebral hemispheres, no hemorrhage mass or extra-axial fluid collection. CT of the head and neck showed no significant stenosis or occlusion. The brain MRI demonstrated multiple shower of emboli acute on chronic on the right. Neurology and cardiology were consulted. Patient was started on Eliquis 5 milligram b.i.d.. He has continued with atorvastatin aspirin and Plavix were discontinued on April 26, 2020 the patient had loop recorder implant and tolerated the procedure well. The hospitalization was significant for hyperglycemia and hypertension. The patient has since restarted insulin and hypertension is controlled with oral antihypertensive medications. Physical examination continues to reveal weakness dysarthria decreased gross motor control impaired balance and decreased safety awareness he has bilateral weakness right more so than the left the patient is discharged to us on apixaban the patient has not traveled outside the use or had contact with someone who is ill that has traveled outside the [place] in the past 21 days. The patient has not traveled to an area of the [place] that is experiencing no transmission of the Coronavirus and has not had close personal contact with anyone that has. The patient does not have fever. The patient is not experiencing any lower respiratory illness symptoms. The patient was tested for COVID-19 on April 24, 2020 and the results were negative Therapy was initiated at the acute care facility and the patient transferred to us from [facility] on April 27, 2020 on FALLS OR SURGERIES: The patient has had major surgeries in the 100 days prior to admission. They had falls in the past year. They had falls with injury in the past year. PAST MEDICAL HISTORY: hyperlipidemia hypertension diabetes mellitus and stroke PAST SURGICAL HISTORY: recent cessation of the loop recorder SOCIAL HISTORY: the patient lives with his brother in a split level home with 6 steps to enter at either level. The patient's brother works and patient is alone during this time. The patient's bedroom and bathroom are on the upper level however the kitchen is on the lower level. The patient has a tub shower combo with no bathroom DME. Patient has a large base quad cane and the wheel walker. The patient was independent with ADLs functional transfers he ambulated with wheel walker prior to this admission. He was receiving home health PT. He drinks alcohol 2 to 4 times per month last drink before the last stroke former smoker quit about 2 months ago FAMILY HISTORY: first-degree relatives with hypertension PRIOR LEVEL OF FUNCTION: Eating was INDEPENDENT Oral Care was INDEPENDENT Toileting Hygiene was INDEPENDENT Shower/B
[2020-04-28 12:13] LABS: Glucose Point of Care 244 (65-105)
[2020-04-28 13:25] VITALS: BMI 24.4
--- NOTE | 2020-04-28 13:39 | PCNSR ---
On 04/28/20, the student, Yaya Saldaña, provided care and completed [facility] documentation on this patient. I have reviewed the student's documentation and agree with the findings.
[2020-04-28 14:00] VITALS: BP 99/63; PULSE 76; RESP 18; TEMP 36.3; O2SAT 100
--- NOTE | 2020-04-28 15:29 | RPD ---
INDIVIDUALIZED PLAN OF CARE FOR Edward Snyder Brief Synthesis of Pre-Admission Screen, Post-Admission Evaluation and Therapy Evaluations: The patient presents to rehab with an acute right-sided CVA. Comorbidities include hypertension, hyperlipidemia, diabetes mellitus with hyperglycemia, and left-sided weakness. The complexity of the patient's medical management, nursing, and therapy needs require an inpatient rehab hospital stay with a physician-led interdisciplinary team approach. The patient?s needs will be best met in an intensive program vs. at a lower level of care. The patient requires physician services for neurology services, medical oversight, and coordination of care. The patient needs physician monitoring and treatment of hyperglycemia with diabetes mellitus, hypertension, monitoring for adverse reactions to new medications, monitoring of infection, and pain control. The patient requires nursing services for frequent neuro checks, anticoagulation therapy, medication management and education, pressure relief and skin care management, monitoring of labs, diabetes management and education, IV administration, and fall/safety precautions. Deficits include:ADLs, Balance, Endurance, Family Training/Education, Mobility, Pain Management, ROM, Safety, Speech, Strength, Transfers Customer Program Specialist/Case Management for: Discharge Planning and Patient/Family Counseling Physical Therapy: 5 days per week for 75 minutes. Treatments may include: Therapeutic Exercise, Gait Training, Neuromuscular Re-education, Transfer Training, Community Reintegration, Bed Mobility, Patient/Family Education, Wheelchair Mobility Group Therapy/Concurrent Therapy Rationales: -Improve attention span during functional activities in a distracted environment. -Enhance problem solving and/or adequate judgment skills during functional activities in a distracted environment. -Promote increased safety awareness in a distracted environment to reduce fall risk with functional tasks, transfers, and ambulation to allow a more safe, self-sufficient return to the home environment. -Improve dynamic balance skills to promote safety and independence with functional activities in a distracted environment for maximum gain. Occupational Therapy: 5 days per week for 75 minutes. Treatments may include: Therapeutic Exercise, Therapeutic Activity, Cognitive Training, Self-Care Transfer Training, Community Reintegration, Home Management, Patient/Family Education, Wheelchair Mobility Training, Energy Conservation Training Group Therapy/Concurrent Therapy Rationales: -Allow therapist to observe and teach generalization and carry-over of skills learned in individual therapy. -Enhance problem solving and sequencing skills during therapeutic activities in a distracted environment. -Promote increased safety awareness in a realistic setting to reduce fall risk with functional tasks due to visual and verbal distractions. -Increase functional level with ADLs, ADL transfers and use of adaptive equipment through therapeutic activities with others while promoting safety to allow a more safe, self-sufficient return home. Speech Therapy: 5 days per week for 30 minutes. Treatments may include: Dysphasia Therapy, Speech/Language/Communication Therapy, Cognitive Training, Patient/Family Education Group Therapy/Concurrent Therapy - Rationale: -Allow therapist to observe and teach generalization and carry-over of skills learned in individual therapy. -Improve comprehension skills with complex or abstract ideas through discussion in a realistic setting. -Enhance problem solving skills with complex issues during activities in a distracted environment. -Promote increased memory skills and concentration in a distracted environment for a safe transition home. -Improve attention and focus with language/communication skills in a realistic and supportive therapeutic setting. -Allow for practice of expression of basic needs and ideas through func
[2020-04-28 17:09] LABS: Glucose Point of Care 128 (65-105)
[2020-04-28] MEDS: ATORVASTATIN 40 MG TABLET PO (21:23)
[2020-04-28] MEDS: CYANOCOBALAMIN 1,000 MCG TABLET 2000 MCG PO (21:23)
[2020-04-28] MEDS: INSULIN GLARGINE (*BKC) 100 UNITS/ML 30 UNITS SUB-Q (21:25)
[2020-04-28 22:00] VITALS: BP 114/67; PULSE 65; RESP 16; TEMP 36.3; O2SAT 99
[2020-04-28 22:04] LABS: Glucose Point of Care 186 (65-105)
[2020-04-29 05:05] VITALS: BP 112/65; PULSE 65; RESP 16; TEMP 36.2; O2SAT 99
[2020-04-29 07:02] LABS: Glucose Point of Care 237 (65-105)
[2020-04-29] MEDS: metFORMIN HCL 500 MG TABLET 1000 MG PO ×2 (08:41→17:22)
[2020-04-29] MEDS: amLODIPine BESYLATE 5 MG TABLET 10 MG PO (08:42)
[2020-04-29] MEDS: lisinopriL 20 MG TABLET 40 MG PO (08:42)
[2020-04-29] MEDS: APIXABAN 5 MG TABLET PO ×2 (08:43→17:22)
[2020-04-29] MEDS: INSULIN ASPART (*BKC) 100 UNITS/ML 7 UNITS SUB-Q ×2 (08:46→17:22)
[2020-04-29 12:15] LABS: Glucose Point of Care 67 (65-105)
[2020-04-29 14:00] VITALS: BP 102/65; PULSE 66; RESP 20; TEMP 36.4; O2SAT 100
[2020-04-29 17:21] LABS: Glucose Point of Care 229 (65-105)
[2020-04-29] MEDS: CYANOCOBALAMIN 1,000 MCG TABLET 2000 MCG PO (20:21)
[2020-04-29] MEDS: ATORVASTATIN 40 MG TABLET PO (20:21)
[2020-04-29 20:29] VITALS: BP 123/66; PULSE 76; RESP 18; TEMP 36.6; O2SAT 100
[2020-04-29 20:55] LABS: Glucose Point of Care 116 (65-105)
[2020-04-29] MEDS: INSULIN GLARGINE (*BKC) 100 UNITS/ML 30 UNITS SUB-Q (20:55)
[2020-04-30 05:25] VITALS: BP 100/44; PULSE 61; RESP 18; TEMP 36.7; O2SAT 100
[2020-04-30 07:02] LABS: Glucose Point of Care 71 (65-105)
[2020-04-30 08:00] VITALS: PULSE 61; RESP 18; O2SAT 100
--- NOTE | 2020-04-30 08:35 | PC.NURSE ---
talked with Dr. Garber and insulin held due to low blood sugar this a.m.
[2020-04-30] MEDS: APIXABAN 5 MG TABLET PO ×2 (10:01→16:20)
[2020-04-30] MEDS: amLODIPine BESYLATE 5 MG TABLET 10 MG PO (10:01)
[2020-04-30] MEDS: lisinopriL 20 MG TABLET 40 MG PO (10:01)
[2020-04-30] MEDS: metFORMIN HCL 500 MG TABLET 1000 MG PO ×2 (10:02→16:20)
[2020-04-30 12:13] LABS: Glucose Point of Care 169 (65-105)
[2020-04-30] MEDS: INSULIN ASPART (*BKC) 100 UNITS/ML 7 UNITS SUB-Q ×2 (12:16→17:24)
[2020-04-30 14:00] VITALS: BP 93/64; PULSE 72; RESP 17; TEMP 36.5; O2SAT 100
--- NOTE | 2020-04-30 14:30 | WPDNEURORHBP ---
Subjective Date/time seen: 04/30/20 14:30 59 years old admitted with the impairment category of his stroke along with hypertension hyperlipidemia uncontrolled diabetes mellitus vargas he had a previous stroke but was superimposed by the new stroke Review of Systems Review of Systems: Narrative: remains the same as noted in the admission history and physical examination Functional Status Ambulation Ability Ability to Ambulate 10 Feet: Contact Guard Ability to Ambulate 50 Feet With 2 Turns: Contact Guard Ability to Ambulate 150 Feet: Minimum Assistance X 1 Ambulation Assistive Devices: Walker, Wheeled Transfers Ability Ability to Transfer In/Out of Chair: Contact Guard Exam Narrative: Exam Narrative: examination revealed him to be awake alert cooperative in no obvious acute distress ear nose throat examination is normal I is normal and psoas be related to structures neck supple with no cervical bruits no thyromegaly no lymphadenopathy heart regular with no murmur lungs clear to auscultation with no crepitation no rhonchi abdomen is soft with normal bowel sounds no organomegaly neurological he is awake alert with mildly dysarthric speech by slight bilateral weakness requiring assistance in all daily activities of living and has mild memory deficit psychological examination is grossly normal Objective Data Vital Signs Vital Signs: Vital Signs - 24 hr 04/29/20 20:29 04/30/20 05:25 04/30/20 08:00 Temperature 36.6 C 36.7 C Pulse Rate 76 61 61 Respiratory Rate 18 18 18 Blood Pressure 123/66 100/44 L Pulse Oximetry 100 100 100 Intake/Output Intake/Output: Intake & Output 04/27/20 04/28/20 04/29/20 04/30/20 23:59 23:59 23:59 23:59 Intake Total 720 720 480 Balance 720 720 480 Meds/Results Medications: Active Medications Generic Name Dose Route Start Last Admin Trade Name Freq PRN Reason Stop Dose Admin Amlodipine Besylate 10 mg 04/28/20 09:00 04/30/20 10:01 Norvasc PO 10 mg DAILY BRIGHT Administration Apixaban 5 mg 04/28/20 09:00 04/30/20 10:01 Eliquis PO 5 mg BID BRIGHT Administration Atorvastatin Calcium 40 mg 04/27/20 22:30 04/29/20 20:21 Lipitor PO 40 mg HS BRIGHT Administration Cyanocobalamin 2,000 mcg 04/27/20 22:30 04/29/20 20:21 Vitamin B-12 Tab PO 2,000 mcg HS BRIGHT Administration Dextrose 12.5 gm 04/28/20 07:24 Dextrose 50% Syringe IV PUSH PRN PRN Hypoglycemia Protocol Glucagon 1 mg 04/28/20 07:24 Glucagon For Inj IM PRN PRN Hypoglycemia Protocol Glucose 15 gm 04/28/20 07:24 Glutose 15 PO PRN PRN Hypoglycemia Protocol Dextrose 1,000 mls @ 100 mls/hr 04/28/20 07:24 Dextrose 5% 1,000 Ml IVPB PRN PRN Hypoglycemia Protocol Insulin Aspart 7 units 04/28/20 06:30 04/30/20 12:16 Novolog SUB-Q 7 units TIDAC BRIGHT Administration Insulin Glargine 30 units 04/27/20 22:30 04/29/20 20:55 Lantus SUB-Q 30 units HS BRIGHT Administration Lisinopril 40 mg 04/28/20 09:00 04/30/20 10:01 Prinivil PO 40 mg DAILY BRIGHT Administration Metformin HCl 1,000 mg 04/28/20 08:00 04/30/20 10:02 Glucophage PO 1,000 mg BIDWM BRIGHT Administration Labs Labs: Laboratory Results - last 24 hr 04/29/20 04/29/20 04/30/20 17:19 20:51 06:55 POC Capillary Glucose 229 H 116 H 71 04/30/20 12:10 POC Capillary Glucose 169 H Progress Note: A&P Assessment and Plan (1) Hemiparesis of left nondominant side: Code(s): G81.94 - Hemiplegia, unspecified affecting left nondominant side Status: Acute (2) Recurrent strokes: Code(s): I63.9 - Cerebral infarction, unspecified Status: Acute (3) Tobacco abuse: Code(s): Z72.0 - Tobacco use Status: Acute (4) Alcohol use: Code(s): Z72.89 - Other problems related to lifestyle Status: Acute (5) Diabetes mellitus: Code(s): E11.9 - Type 2 diabetes mellitus wit
--- NOTE | 2020-04-30 14:44 | PCCCNOTE ---
On 04/30/20, the student, [Zachary Melo ], provided care and completed [facility] documentation on this patient. I have reviewed the student's documentation and agree with the findings.
[2020-04-30 17:20] LABS: Glucose Point of Care 169 (65-105)
[2020-04-30] MEDS: CYANOCOBALAMIN 1,000 MCG TABLET 2000 MCG PO (20:15)
[2020-04-30] MEDS: ATORVASTATIN 40 MG TABLET PO (20:15)
[2020-04-30] MEDS: INSULIN GLARGINE (*BKC) 100 UNITS/ML 30 UNITS SUB-Q (21:08)
[2020-04-30 21:19] LABS: Glucose Point of Care 135 (65-105)
[2020-04-30 22:00] VITALS: BP 113/64; PULSE 68; RESP 18; TEMP 36.9; O2SAT 100
[2020-05-01 06:00] VITALS: BP 114/68; PULSE 61; RESP 16; TEMP 36.4; O2SAT 94
[2020-05-01 06:26] LABS: Glucose Point of Care 116 (65-105)
[2020-05-01] MEDS: APIXABAN 5 MG TABLET PO ×2 (08:27→16:55)
[2020-05-01] MEDS: amLODIPine BESYLATE 5 MG TABLET 10 MG PO (08:27)
[2020-05-01] MEDS: metFORMIN HCL 500 MG TABLET 1000 MG PO ×2 (08:27→16:54)
[2020-05-01] MEDS: lisinopriL 20 MG TABLET 40 MG PO (08:28)
[2020-05-01] MEDS: INSULIN ASPART (*BKC) 100 UNITS/ML 7 UNITS SUB-Q (08:30)
[2020-05-01 12:33] LABS: Glucose Point of Care 93 (65-105)
[2020-05-01 14:00] VITALS: BP 110/64; PULSE 63; RESP 16; TEMP 36.6; O2SAT 100
--- NOTE | 2020-05-01 16:26 | WPDNEURORHBP ---
Subjective Date/time seen: 05/01/20 16:26 Interval history: this 59-year-old is here after having had a stroke doing fairly well does not have any new specific complaints continue to make progress particularly denies any chest pain shortness of breath fever chills sore throat headache nausea vomiting Review of Systems Review of Systems: All systems reviewed & are unremarkable except as noted in HPI and below Functional Status Ambulation Ability Ability to Ambulate 10 Feet: Contact Guard Ability to Ambulate 50 Feet With 2 Turns: Contact Guard Ability to Ambulate 150 Feet: Contact Guard Ambulation Assistive Devices: Walker, Wheeled Transfers Ability Ability to Transfer In/Out of Chair: Contact Guard Exam Const: General: comfortable and no acute distress HENMT: General nose exam: Normal nares present Mouth: Yes moist mucous membranes Eyes: General: appearance normal, both eyes and all related structures Neck: Neck: supple and no JVD Resp: Effort & Inspection: normal respiratory effort Auscultation: clear to auscultation bilaterally Cardio: Rate: regular rate Rhythm: regular rhythm GI: GI Palp: Yes Soft to palpation Auscultation: normal bowel sounds Skin: General skin exam: normal color and no rashes or lesions noted Neuro: Other: patient awake alert oriented weakness is improving engage in therapy quite a bit Extrem: General: normal to inspection Psych: Mental Status: mental status grossly normal Objective Data Vital Signs Vital Signs: Vital Signs - 24 hr 04/30/20 22:00 05/01/20 06:00 05/01/20 14:00 Temperature 36.9 C 36.4 C L 36.6 C Pulse Rate 68 61 63 Respiratory Rate 18 16 16 Blood Pressure 113/64 114/68 110/64 Pulse Oximetry 100 94 100 Intake/Output Intake/Output: Intake & Output 04/28/20 04/29/20 04/30/20 05/01/20 23:59 23:59 23:59 23:59 Intake Total 720 720 720 480 Balance 720 720 720 480 Meds/Results Medications: Active Medications Generic Name Dose Route Start Last Admin Trade Name Freq PRN Reason Stop Dose Admin Amlodipine Besylate 10 mg 04/28/20 09:00 05/01/20 08:27 Norvasc PO 10 mg DAILY BRIGHT Administration Apixaban 5 mg 04/28/20 09:00 05/01/20 08:27 Eliquis PO 5 mg BID BRIGHT Administration Atorvastatin Calcium 40 mg 04/27/20 22:30 04/30/20 20:15 Lipitor PO 40 mg HS BRIGHT Administration Cyanocobalamin 2,000 mcg 04/27/20 22:30 04/30/20 20:15 Vitamin B-12 Tab PO 2,000 mcg HS BRIGHT Administration Dextrose 12.5 gm 04/28/20 07:24 Dextrose 50% Syringe IV PUSH PRN PRN Hypoglycemia Protocol Glucagon 1 mg 04/28/20 07:24 Glucagon For Inj IM PRN PRN Hypoglycemia Protocol Glucose 15 gm 04/28/20 07:24 Glutose 15 PO PRN PRN Hypoglycemia Protocol Dextrose 1,000 mls @ 100 mls/hr 04/28/20 07:24 Dextrose 5% 1,000 Ml IVPB PRN PRN Hypoglycemia Protocol Insulin Aspart 6 units 05/01/20 16:30 Novolog SUB-Q TIDAC BRIGHT Insulin Glargine 30 units 04/27/20 22:30 04/30/20 21:08 Lantus SUB-Q 30 units HS BRIGHT Administration Lisinopril 40 mg 04/28/20 09:00 05/01/20 08:28 Prinivil PO 40 mg DAILY BRIGHT Administration Metformin HCl 1,000 mg 04/28/20 08:00 05/01/20 08:27 Glucophage PO 1,000 mg BIDWM BRIGHT Administration Labs Labs: Laboratory Results - last 24 hr 04/30/20 04/30/20 05/01/20 17:15 21:05 06:20 POC Capillary Glucose 169 H 135 H 116 H 05/01/20 12:31 POC Capillary Glucose 93 Progress Note: A&P Assessment and Plan (1) Recurrent strokes: Code(s): I63.9 - Cerebral infarction, unspecified Status: Acute (2) Hemiparesis of left nondominant side: Code(s): G81.94 - Hemiplegia, unspecified affecting left nondominant side Status: Acute (3) Tobacco abuse: Code(s): Z72.0 - Tobacco use Status: Acute (4) Alcohol use: Code(s): Z72.89 - Other problem
[2020-05-01] MEDS: INSULIN ASPART (*BKC) 100 UNITS/ML 6 UNITS SUB-Q (17:02)
[2020-05-01 18:16] LABS: Glucose Point of Care 259 (65-105)
[2020-05-01] MEDS: CYANOCOBALAMIN 1,000 MCG TABLET 2000 MCG PO (20:12)
[2020-05-01] MEDS: ATORVASTATIN 40 MG TABLET PO (20:12)
[2020-05-01] MEDS: INSULIN GLARGINE (*BKC) 100 UNITS/ML 30 UNITS SUB-Q (20:16)
[2020-05-01 20:23] LABS: Glucose Point of Care 137 (65-105)
[2020-05-01 22:00] VITALS: BP 116/65; PULSE 66; RESP 16; TEMP 36.6; O2SAT 99
[2020-05-02 05:00] LABS: Glucose Point of Care 79 (65-105)
[2020-05-02 06:00] VITALS: BP 109/67; PULSE 67; RESP 16; TEMP 36.9; O2SAT 99
[2020-05-02] MEDS: metFORMIN HCL 500 MG TABLET 1000 MG PO ×2 (08:32→17:05)
[2020-05-02] MEDS: APIXABAN 5 MG TABLET PO ×2 (08:33→17:05)
[2020-05-02] MEDS: amLODIPine BESYLATE 5 MG TABLET 10 MG PO (08:33)
[2020-05-02] MEDS: lisinopriL 20 MG TABLET 40 MG PO (08:34)
[2020-05-02] MEDS: INSULIN ASPART (*BKC) 100 UNITS/ML 6 UNITS SUB-Q ×3 (08:35→17:05)
[2020-05-02 12:36] LABS: Glucose Point of Care 86 (65-105)
[2020-05-02 14:00] VITALS: BP 116/62; PULSE 67; RESP 17; TEMP 36.2; O2SAT 100
[2020-05-02 17:02] LABS: Glucose Point of Care 94 (65-105)
--- NOTE | 2020-05-02 18:07 | WPDNEURORHBP ---
Subjective Date/time seen: 05/02/20 18:07 Interval history: this 59-year-old gentleman is here due to recurrent stroke affecting the left side of the body from which he is improving his making progress and happy with the progress he has had so far denies any headache nausea vomiting chest pain shortness of breath fever chills sore throat Review of Systems Review of Systems: All systems reviewed & are unremarkable except as noted in HPI and below Functional Status Ambulation Ability Ability to Ambulate 10 Feet: Contact Guard Ability to Ambulate 50 Feet With 2 Turns: Contact Guard Ability to Ambulate 150 Feet: Contact Guard Ambulation Assistive Devices: Walker, Wheeled Transfers Ability Ability to Transfer In/Out of Chair: Contact Guard Exam Const: General: comfortable and no acute distress HENMT: General nose exam: Normal nares present Mouth: Yes moist mucous membranes Eyes: General: appearance normal, both eyes and all related structures Neck: Neck: supple and no JVD Resp: Effort & Inspection: normal respiratory effort Auscultation: clear to auscultation bilaterally Cardio: Rate: regular rate Rhythm: regular rhythm GI: GI Palp: Yes Soft to palpation Auscultation: normal bowel sounds Skin: General skin exam: normal color and no rashes or lesions noted Neuro: Other: patient is awake alert well oriented time place and person is speech and language functions are normal cranial examination is normal left-sided hemiparesis is improving Extrem: General: normal to inspection Psych: Mental Status: mental status grossly normal Objective Data Vital Signs Vital Signs: Vital Signs - 24 hr 05/01/20 22:00 05/02/20 06:00 05/02/20 14:00 Temperature 36.6 C 36.9 C 36.2 C L Pulse Rate 66 67 67 Respiratory Rate 16 16 17 Blood Pressure 116/65 109/67 116/62 Pulse Oximetry 99 99 100 Intake/Output Intake/Output: Intake & Output 04/29/20 04/30/20 05/01/20 05/02/20 23:59 23:59 23:59 23:59 Intake Total 720 720 720 480 Balance 720 720 720 480 Meds/Results Medications: Active Medications Generic Name Dose Route Start Last Admin Trade Name Freq PRN Reason Stop Dose Admin Amlodipine Besylate 10 mg 04/28/20 09:00 05/02/20 08:33 Norvasc PO 10 mg DAILY BRIGHT Administration Apixaban 5 mg 04/28/20 09:00 05/02/20 17:05 Eliquis PO 5 mg BID BRIGHT Administration Atorvastatin Calcium 40 mg 04/27/20 22:30 05/01/20 20:12 Lipitor PO 40 mg HS BRIGHT Administration Cyanocobalamin 2,000 mcg 04/27/20 22:30 05/01/20 20:12 Vitamin B-12 Tab PO 2,000 mcg HS BRIGHT Administration Dextrose 12.5 gm 04/28/20 07:24 Dextrose 50% Syringe IV PUSH PRN PRN Hypoglycemia Protocol Glucagon 1 mg 04/28/20 07:24 Glucagon For Inj IM PRN PRN Hypoglycemia Protocol Glucose 15 gm 04/28/20 07:24 Glutose 15 PO PRN PRN Hypoglycemia Protocol Dextrose 1,000 mls @ 100 mls/hr 04/28/20 07:24 Dextrose 5% 1,000 Ml IVPB PRN PRN Hypoglycemia Protocol Insulin Aspart 6 units 05/01/20 16:30 05/02/20 17:05 Novolog SUB-Q 6 units TIDAC BRIGHT Administration Insulin Glargine 30 units 04/27/20 22:30 05/01/20 20:16 Lantus SUB-Q 30 units HS BRIGHT Administration Lisinopril 40 mg 04/28/20 09:00 05/02/20 08:34 Prinivil PO 40 mg DAILY BRIGHT Administration Metformin HCl 1,000 mg 04/28/20 08:00 05/02/20 17:05 Glucophage PO 1,000 mg BIDWM BRIGHT Administration Labs Labs: Laboratory Results - last 24 hr 05/01/20 05/01/20 05/02/20 16:50 20:15 04:40 POC Capillary Glucose 259 H 137 H 79 05/02/20 05/02/20 12:23 16:56 POC Capillary Glucose 86 94 Progress Note: A&P Assessment and Plan (1) Recurrent strokes: Code(s): I63.9 - Cerebral infarction, unspecified Status: Acute (2) Hemiparesis of left nondominant side: Code(s): G81.94 - Hemiplegia, unspecified affecting l
[2020-05-02] MEDS: CYANOCOBALAMIN 1,000 MCG TABLET 2000 MCG PO (20:10)
[2020-05-02] MEDS: ATORVASTATIN 40 MG TABLET PO (20:11)
[2020-05-02 20:17] LABS: Glucose Point of Care 62 (65-105)
[2020-05-02 20:50] VITALS: BP 104/61; PULSE 66; RESP 18; TEMP 36.4; O2SAT 99
--- NOTE | 2020-05-02 20:53 | PC.NURSE ---
HS insulin held due to low BS. Dr Garber aware.
[2020-05-02 22:31] LABS: Glucose Point of Care 163 (65-105)
[2020-05-03 05:18] VITALS: BP 128/79; PULSE 63; RESP 18; TEMP 36.1; O2SAT 98
[2020-05-03 06:51] LABS: Glucose Point of Care 167 (65-105)
[2020-05-03 08:30] VITALS: PULSE 66; RESP 18; O2SAT 98
[2020-05-03] MEDS: lisinopriL 20 MG TABLET 40 MG PO (08:45)
[2020-05-03] MEDS: metFORMIN HCL 500 MG TABLET 1000 MG PO ×2 (08:45→17:00)
[2020-05-03] MEDS: APIXABAN 5 MG TABLET PO ×2 (08:45→17:00)
[2020-05-03] MEDS: amLODIPine BESYLATE 5 MG TABLET 10 MG PO (08:46)
[2020-05-03] MEDS: INSULIN ASPART (*BKC) 100 UNITS/ML 6 UNITS SUB-Q ×3 (08:47→16:59)
--- NOTE | 2020-05-03 10:32 | WPDNEURORHBP ---
Subjective Date/time seen: 05/03/20 10:32 59 years old with no associated complaints otherwise att this is stage Review of Systems Review of Systems: All systems reviewed & are unremarkable except as noted in HPI and below Functional Status Ambulation Ability Ability to Ambulate 10 Feet: Contact Guard Ability to Ambulate 50 Feet With 2 Turns: Contact Guard Ability to Ambulate 150 Feet: Contact Guard Ambulation Assistive Devices: Walker, Wheeled Transfers Ability Ability to Transfer In/Out of Chair: Contact Guard Exam Narrative: Exam Narrative: examination reveals him to be awake alert in no obvious acute distress Objective Data Vital Signs Vital Signs: Vital Signs - 24 hr 05/02/20 14:00 05/02/20 20:50 05/03/20 05:18 Temperature 36.2 C L 36.4 C 36.1 C L Pulse Rate 67 66 63 Respiratory Rate 17 18 18 Blood Pressure 116/62 104/61 128/79 Pulse Oximetry 100 99 98 05/03/20 08:30 Temperature Pulse Rate 66 Respiratory Rate 18 Blood Pressure Pulse Oximetry 98 Intake/Output Intake/Output: Intake & Output 04/30/20 05/01/20 05/02/20 05/03/20 23:59 23:59 23:59 23:59 Intake Total 720 720 720 240 Balance 720 720 720 240 Meds/Results Medications: Active Medications Generic Name Dose Route Start Last Admin Trade Name Freq PRN Reason Stop Dose Admin Amlodipine Besylate 10 mg 04/28/20 09:00 05/03/20 08:46 Norvasc PO 10 mg DAILY BRIGHT Administration Apixaban 5 mg 04/28/20 09:00 05/03/20 08:45 Eliquis PO 5 mg BID BRIGHT Administration Atorvastatin Calcium 40 mg 04/27/20 22:30 05/02/20 20:11 Lipitor PO 40 mg HS BRIGHT Administration Cyanocobalamin 2,000 mcg 04/27/20 22:30 05/02/20 20:10 Vitamin B-12 Tab PO 2,000 mcg HS BRIGHT Administration Dextrose 12.5 gm 04/28/20 07:24 Dextrose 50% Syringe IV PUSH PRN PRN Hypoglycemia Protocol Glucagon 1 mg 04/28/20 07:24 Glucagon For Inj IM PRN PRN Hypoglycemia Protocol Glucose 15 gm 04/28/20 07:24 Glutose 15 PO PRN PRN Hypoglycemia Protocol Dextrose 1,000 mls @ 100 mls/hr 04/28/20 07:24 Dextrose 5% 1,000 Ml IVPB PRN PRN Hypoglycemia Protocol Insulin Aspart 6 units 05/01/20 16:30 05/03/20 08:47 Novolog SUB-Q 6 units TIDAC BRIGHT Administration Insulin Glargine 30 units 04/27/20 22:30 05/02/20 20:15 Lantus SUB-Q Not Given HS [facility] Lisinopril 40 mg 04/28/20 09:00 05/03/20 08:45 Prinivil PO 40 mg DAILY BRIGHT Administration Metformin HCl 1,000 mg 04/28/20 08:00 05/03/20 08:45 Glucophage PO 1,000 mg BIDWM BRIGHT Administration Labs Labs: Laboratory Results - last 24 hr 05/02/20 05/02/20 05/02/20 12:23 16:56 20:13 POC Capillary Glucose 86 94 62 L 05/02/20 05/03/20 21:36 06:26 POC Capillary Glucose 163 H 167 H
--- NOTE | 2020-05-03 10:36 | P.PNNERE_ITS ---
Subjective Date/time seen: 05/03/20 10:36 Functional Status Ambulation Ability Ability to Ambulate 10 Feet: Contact Guard Ability to Ambulate 50 Feet With 2 Turns: Contact Guard Ability to Ambulate 150 Feet: Contact Guard Ambulation Assistive Devices: Walker, Wheeled Transfers Ability Ability to Transfer In/Out of Chair: Contact Guard Objective Data Vital Signs Vital Signs: Vital Signs - 24 hr 05/02/20 14:00 05/02/20 20:50 05/03/20 05:18 Temperature 36.2 C L 36.4 C 36.1 C L Pulse Rate 67 66 63 Respiratory Rate 17 18 18 Blood Pressure 116/62 104/61 128/79 Pulse Oximetry 100 99 98 05/03/20 08:30 Temperature Pulse Rate 66 Respiratory Rate 18 Blood Pressure Pulse Oximetry 98 Intake/Output Intake/Output: Intake & Output 04/30/20 05/01/20 05/02/20 05/03/20 23:59 23:59 23:59 23:59 Intake Total 720 720 720 240 Balance 720 720 720 240 Meds/Results Medications: Active Medications Generic Name Dose Route Start Last Admin Trade Name Freq PRN Reason Stop Dose Admin Amlodipine Besylate 10 mg 04/28/20 09:00 05/03/20 08:46 Norvasc PO 10 mg DAILY BRIGHT Administration Apixaban 5 mg 04/28/20 09:00 05/03/20 08:45 Eliquis PO 5 mg BID BRIGHT Administration Atorvastatin Calcium 40 mg 04/27/20 22:30 05/02/20 20:11 Lipitor PO 40 mg HS BRIGHT Administration Cyanocobalamin 2,000 mcg 04/27/20 22:30 05/02/20 20:10 Vitamin B-12 Tab PO 2,000 mcg HS BRIGHT Administration Dextrose 12.5 gm 04/28/20 07:24 Dextrose 50% Syringe IV PUSH PRN PRN Hypoglycemia Protocol Glucagon 1 mg 04/28/20 07:24 Glucagon For Inj IM PRN PRN Hypoglycemia Protocol Glucose 15 gm 04/28/20 07:24 Glutose 15 PO PRN PRN Hypoglycemia Protocol Dextrose 1,000 mls @ 100 mls/hr 04/28/20 07:24 Dextrose 5% 1,000 Ml IVPB PRN PRN Hypoglycemia Protocol Insulin Aspart 6 units 05/01/20 16:30 05/03/20 08:47 Novolog SUB-Q 6 units TIDAC BRIGHT Administration Insulin Glargine 30 units 04/27/20 22:30 05/02/20 20:15 Lantus SUB-Q Not Given HS [facility] Lisinopril 40 mg 04/28/20 09:00 05/03/20 08:45 Prinivil PO 40 mg DAILY BRIGHT Administration Metformin HCl 1,000 mg 04/28/20 08:00 05/03/20 08:45 Glucophage PO 1,000 mg BIDWM BRIGHT Administration Labs Labs: Laboratory Results - last 24 hr 05/02/20 05/02/20 05/02/20 12:23 16:56 20:13 POC Capillary Glucose 86 94 62 L 05/02/20 05/03/20 21:36 06:26 POC Capillary Glucose 163 H 167 H
--- NOTE | 2020-05-03 10:38 | WPDNEURORHBP ---
Subjective Date/time seen: 05/03/20 10:38 Functional Status Ambulation Ability Ability to Ambulate 10 Feet: Contact Guard Ability to Ambulate 50 Feet With 2 Turns: Contact Guard Ability to Ambulate 150 Feet: Contact Guard Ambulation Assistive Devices: Walker, Wheeled Transfers Ability Ability to Transfer In/Out of Chair: Contact Guard Exam Narrative: Exam Narrative: Objective Data Vital Signs Vital Signs: Vital Signs - 24 hr 05/02/20 14:00 05/02/20 20:50 05/03/20 05:18 Temperature 36.2 C L 36.4 C 36.1 C L Pulse Rate 67 66 63 Respiratory Rate 17 18 18 Blood Pressure 116/62 104/61 128/79 Pulse Oximetry 100 99 98 05/03/20 08:30 Temperature Pulse Rate 66 Respiratory Rate 18 Blood Pressure Pulse Oximetry 98 Intake/Output Intake/Output: Intake & Output 04/30/20 05/01/20 05/02/20 05/03/20 23:59 23:59 23:59 23:59 Intake Total 720 720 720 240 Balance 720 720 720 240 Meds/Results Medications: Active Medications Generic Name Dose Route Start Last Admin Trade Name Freq PRN Reason Stop Dose Admin Amlodipine Besylate 10 mg 04/28/20 09:00 05/03/20 08:46 Norvasc PO 10 mg DAILY BRIGHT Administration Apixaban 5 mg 04/28/20 09:00 05/03/20 08:45 Eliquis PO 5 mg BID BRIGHT Administration Atorvastatin Calcium 40 mg 04/27/20 22:30 05/02/20 20:11 Lipitor PO 40 mg HS BRIGHT Administration Cyanocobalamin 2,000 mcg 04/27/20 22:30 05/02/20 20:10 Vitamin B-12 Tab PO 2,000 mcg HS BRIGHT Administration Dextrose 12.5 gm 04/28/20 07:24 Dextrose 50% Syringe IV PUSH PRN PRN Hypoglycemia Protocol Glucagon 1 mg 04/28/20 07:24 Glucagon For Inj IM PRN PRN Hypoglycemia Protocol Glucose 15 gm 04/28/20 07:24 Glutose 15 PO PRN PRN Hypoglycemia Protocol Dextrose 1,000 mls @ 100 mls/hr 04/28/20 07:24 Dextrose 5% 1,000 Ml IVPB PRN PRN Hypoglycemia Protocol Insulin Aspart 6 units 05/01/20 16:30 05/03/20 08:47 Novolog SUB-Q 6 units TIDAC BRIGHT Administration Insulin Glargine 30 units 04/27/20 22:30 05/02/20 20:15 Lantus SUB-Q Not Given [facility] Lisinopril 40 mg 04/28/20 09:00 05/03/20 08:45 Prinivil PO 40 mg DAILY BRIGHT Administration Metformin HCl 1,000 mg 04/28/20 08:00 05/03/20 08:45 Glucophage PO 1,000 mg BIDWM BRIGHT Administration Labs Labs: Laboratory Results - last 24 hr 05/02/20 05/02/20 05/02/20 12:23 16:56 20:13 POC Capillary Glucose 86 94 62 L 05/02/20 05/03/20 21:36 06:26 POC Capillary Glucose 163 H 167 H
--- NOTE | 2020-05-03 10:42 | WPDNEURORHBP ---
Subjective Date/time seen: 05/03/20 10:42 59 years old admitted to the hospital on the rehab floor for the complaints of recurrent stroke without any associated symptomatology Review of Systems Review of Systems: All systems reviewed & are unremarkable except as noted in HPI and below Functional Status Ambulation Ability Ability to Ambulate 10 Feet: Contact Guard Ability to Ambulate 50 Feet With 2 Turns: Contact Guard Ability to Ambulate 150 Feet: Contact Guard Ambulation Assistive Devices: Walker, Wheeled Transfers Ability Ability to Transfer In/Out of Chair: Contact Guard Exam Narrative: Exam Narrative: examination reveals him to be awake alert cooperative in no obvious acute distress head normocephalic with no cane or bruit ear nose throat examination normal neck is supple with no cervical bruit no thyromegaly no lymphadenopathy heart regular lungs clear left hemiparesis with hyperreflexia and upgoing left plantar response Objective Data Vital Signs Vital Signs: Vital Signs - 24 hr 05/02/20 14:00 05/02/20 20:50 05/03/20 05:18 Temperature 36.2 C L 36.4 C 36.1 C L Pulse Rate 67 66 63 Respiratory Rate 17 18 18 Blood Pressure 116/62 104/61 128/79 Pulse Oximetry 100 99 98 05/03/20 08:30 Temperature Pulse Rate 66 Respiratory Rate 18 Blood Pressure Pulse Oximetry 98 Intake/Output Intake/Output: Intake & Output 04/30/20 05/01/20 05/02/20 05/03/20 23:59 23:59 23:59 23:59 Intake Total 720 720 720 240 Balance 720 720 720 240 Meds/Results Medications: Active Medications Generic Name Dose Route Start Last Admin Trade Name Freq PRN Reason Stop Dose Admin Amlodipine Besylate 10 mg 04/28/20 09:00 05/03/20 08:46 Norvasc PO 10 mg DAILY BRIGHT Administration Apixaban 5 mg 04/28/20 09:00 05/03/20 08:45 Eliquis PO 5 mg BID BRIGHT Administration Atorvastatin Calcium 40 mg 04/27/20 22:30 05/02/20 20:11 Lipitor PO 40 mg HS BRIGHT Administration Cyanocobalamin 2,000 mcg 04/27/20 22:30 05/02/20 20:10 Vitamin B-12 Tab PO 2,000 mcg HS BRIGHT Administration Dextrose 12.5 gm 04/28/20 07:24 Dextrose 50% Syringe IV PUSH PRN PRN Hypoglycemia Protocol Glucagon 1 mg 04/28/20 07:24 Glucagon For Inj IM PRN PRN Hypoglycemia Protocol Glucose 15 gm 04/28/20 07:24 Glutose 15 PO PRN PRN Hypoglycemia Protocol Dextrose 1,000 mls @ 100 mls/hr 04/28/20 07:24 Dextrose 5% 1,000 Ml IVPB PRN PRN Hypoglycemia Protocol Insulin Aspart 6 units 05/01/20 16:30 05/03/20 08:47 Novolog SUB-Q 6 units TIDAC BRIGHT Administration Insulin Glargine 30 units 04/27/20 22:30 05/02/20 20:15 Lantus SUB-Q Not Given HS BRIGHT Lisinopril 40 mg 04/28/20 09:00 05/03/20 08:45 Prinivil PO 40 mg DAILY BRIGHT Administration Metformin HCl 1,000 mg 04/28/20 08:00 05/03/20 08:45 Glucophage PO 1,000 mg BIDWM BRIGHT Administration Labs Labs: Laboratory Results - last 24 hr 05/02/20 05/02/20 05/02/20 12:23 16:56 20:13 POC Capillary Glucose 86 94 62 L 05/02/20 05/03/20 21:36 06:26 POC Capillary Glucose 163 H 167 H Progress Note: A&P Assessment and Plan (1) Recurrent strokes: Code(s): I63.9 - Cerebral infarction, unspecified Status: Acute (2) Hemiparesis of left nondominant side: Code(s): G81.94 - Hemiplegia, unspecified affecting left nondominant side Status: Acute (3) Tobacco abuse: Code(s): Z72.0 - Tobacco use Status: Acute (4) Alcohol use: Code(s): Z72.89 - Other problems related to lifestyle Status: Acute (5) Diabetes mellitus: Code(s): E11.9 - Type 2 diabetes mellitus without complications Status: Acute (6) Hypertension: Code(s): I10 - Essential (primary) hypertension Status: Acute (7) Stroke: Code(s): I63.9 - Cerebral infarction, unspecified Status: Acute Additional P
[2020-05-03 11:51] LABS: Glucose Point of Care 97 (65-105)
[2020-05-03 14:00] VITALS: BP 124/61; PULSE 68; RESP 18; TEMP 36.2; O2SAT 100
[2020-05-03 17:31] LABS: Glucose Point of Care 92 (65-105)
[2020-05-03 20:01] LABS: Glucose Point of Care 125 (65-105)
[2020-05-03] MEDS: CYANOCOBALAMIN 1,000 MCG TABLET 2000 MCG PO (20:38)
[2020-05-03] MEDS: ATORVASTATIN 40 MG TABLET PO (20:38)
[2020-05-03] MEDS: INSULIN GLARGINE (*BKC) 100 UNITS/ML 30 UNITS SUB-Q (20:38)
[2020-05-03 20:59] VITALS: BP 105/61; PULSE 69; RESP 18; TEMP 36.6; O2SAT 100
[2020-05-04 06:00] VITALS: BP 113/68; PULSE 58; RESP 20; TEMP 36.3; O2SAT 100
[2020-05-04 06:26] LABS: Glucose Point of Care 163 (65-105)
[2020-05-04] MEDS: INSULIN ASPART (*BKC) 100 UNITS/ML 6 UNITS SUB-Q ×3 (07:20→17:17)
[2020-05-04] MEDS: metFORMIN HCL 500 MG TABLET 1000 MG PO ×2 (07:22→17:18)
[2020-05-04 08:00] VITALS: PULSE 60; RESP 18; O2SAT 98
[2020-05-04] MEDS: lisinopriL 20 MG TABLET 40 MG PO (08:25)
[2020-05-04] MEDS: amLODIPine BESYLATE 5 MG TABLET 10 MG PO (08:25)
[2020-05-04] MEDS: APIXABAN 5 MG TABLET PO ×2 (08:25→17:18)
[2020-05-04 11:36] LABS: Glucose Point of Care 79 (65-105)
--- NOTE | 2020-05-04 12:34 | WPDNEURORHBP ---
Subjective Date/time seen: 05/04/20 12:34 Interval history: this 59-year-old gentleman is here after having had a recurrent stroke the last 1 being a shower of emboli per MRI reports available further review and has already been mentioned in my history and physical examination performed when he came in the patient again doing remarkably well making excellent progress both in the PT and OT he walked about 200 feet of course with the assistance patient also has loop recorder He denies any new neurological symptoms no headache nausea vomiting chest pain shortness of breath fever chills sore throat Review of Systems Review of Systems: All systems reviewed & are unremarkable except as noted in HPI and below Functional Status Ambulation Ability Ability to Ambulate 10 Feet: Standby Assistance Ability to Ambulate 50 Feet With 2 Turns: Standby Assistance Ability to Ambulate 150 Feet: Standby Assistance Ambulation Assistive Devices: Walker, Wheeled Transfers Ability Ability to Transfer In/Out of Chair: Contact Guard Exam Const: General: comfortable and no acute distress HENMT: General nose exam: Normal nares present Mouth: Yes moist mucous membranes Eyes: General: appearance normal, both eyes and all related structures Neck: Neck: supple and no JVD Resp: Effort & Inspection: normal respiratory effort Auscultation: clear to auscultation bilaterally Cardio: Rate: regular rate Rhythm: regular rhythm GI: GI Palp: Yes Soft to palpation Auscultation: normal bowel sounds Skin: General skin exam: normal color and no rashes or lesions noted Neuro: Other: patient is awake alert will oriented follows all commands left-sided hemiparesis is improving Extrem: General: normal to inspection Psych: Mental Status: mental status grossly normal Objective Data Vital Signs Vital Signs: Vital Signs - 24 hr 05/03/20 14:00 05/03/20 20:59 05/04/20 06:00 Temperature 36.2 C L 36.6 C 36.3 C L Pulse Rate 68 69 58 L Respiratory Rate 18 18 20 Blood Pressure 124/61 105/61 113/68 Pulse Oximetry 100 100 100 05/04/20 08:00 Temperature Pulse Rate 60 Respiratory Rate 18 Blood Pressure Pulse Oximetry 98 Intake/Output Intake/Output: Intake & Output 05/01/20 05/02/20 05/03/20 05/04/20 23:59 23:59 23:59 23:59 Intake Total 720 720 720 480 Balance 720 720 720 480 Meds/Results Medications: Active Medications Generic Name Dose Route Start Last Admin Trade Name Keo PRN Reason Stop Dose Admin Amlodipine Besylate 10 mg 04/28/20 09:00 05/04/20 08:25 Norvasc PO 10 mg DAILY BRIGHT Administration Apixaban 5 mg 04/28/20 09:00 05/04/20 08:25 Eliquis PO 5 mg BID BRIGHT Administration Atorvastatin Calcium 40 mg 04/27/20 22:30 05/03/20 20:38 Lipitor PO 40 mg HS BRIGHT Administration Cyanocobalamin 2,000 mcg 04/27/20 22:30 05/03/20 20:38 Vitamin B-12 Tab PO 2,000 mcg HS BRIGHT Administration Dextrose 12.5 gm 04/28/20 07:24 Dextrose 50% Syringe IV PUSH PRN PRN Hypoglycemia Protocol Glucagon 1 mg 04/28/20 07:24 Glucagon For Inj IM PRN PRN Hypoglycemia Protocol Glucose 15 gm 04/28/20 07:24 Glutose 15 PO PRN PRN Hypoglycemia Protocol Dextrose 1,000 mls @ 100 mls/hr 04/28/20 07:24 Dextrose 5% 1,000 Ml IVPB PRN PRN Hypoglycemia Protocol Insulin Aspart 6 units 05/01/20 16:30 05/04/20 12:04 Novolog SUB-Q 6 units TIDAC BRIGHT Administration Insulin Glargine 30 units 04/27/20 22:30 05/03/20 20:38 Lantus SUB-Q 30 units HS BRIGHT Administration Lisinopril 40 mg 04/28/20 09:00 05/04/20 08:25 Prinivil PO 40 mg DAILY BRIGHT Administration Metformin HCl 1,000 mg 04/28/20 08:00 05/04/20 07:22 Glucophage PO 1,000 mg BIDWM BRIGHT Administration Labs Labs: Laboratory Results - last 24 hr 05/03/20 05/03/20 05/04/20 16:41 19:58 06:18 POC Capillary Glucose 92 125 H 163 H 05/04
--- NOTE | 2020-05-04 12:45 | PCNFU ---
Nutrition Follow-Up Complete: [facility] nutrition related laboratory values related to type 2 diabetes as evidenced by Glucose of 186 and A1C of 12.9 Goal: Patient to consume 75% or more of meals Patient is meeting goal with 100% meal consumption Pt current nutrition is DBCC. Nutrition recommendation: Recommend Heart Healthy paired with DBCC because of CVA Last recorded weight is 75.1 kg. Recommend obtaining new weight. Bowel Motility: last bowel movement reported on 05/01/20. Patient states this is normal for him per RN. Labs Reviewed: Hgb (11.7) Hct (34.1) Na (135) Glu (186) Meds Noted: Norvasc, Eliquis, Lipitor, Vitamin B-12, Novolog, Lantus, Prinivil, Glucophage Additional Notes: Patient reports good appetite and did not have any diet related concerns/questions. skin is WNL. Follow up in 7 days
--- NOTE | 2020-05-04 13:32 | PCNSR ---
On 05/04/20, the student, Yaya Saldaña, provided care and completed [facility] documentation on this patient. I have reviewed the student's documentation and agree with the findings.
[2020-05-04 14:00] VITALS: BP 126/64; PULSE 70; RESP 20; TEMP 36.6
[2020-05-04 17:15] LABS: Glucose Point of Care 245 (65-105)
[2020-05-04] MEDS: CYANOCOBALAMIN 1,000 MCG TABLET 2000 MCG PO (21:43)
[2020-05-04] MEDS: ATORVASTATIN 40 MG TABLET PO (21:43)
[2020-05-04] MEDS: INSULIN GLARGINE (*BKC) 100 UNITS/ML 30 UNITS SUB-Q (21:44)
[2020-05-04 21:46] VITALS: BP 110/57; PULSE 66; RESP 18; TEMP 35.8; O2SAT 100
[2020-05-04 22:03] LABS: Glucose Point of Care 100 (65-105)
[2020-05-05 05:29] LABS: Basophils Absolute Auto 0.1 K/mm3 (0.0-0.1); Basophils Percent Auto 0.8 % (0.2-1.2); Eosinophils Absolute Auto 0.2 K/mm3 (0-0.3); Hematocrit 32.7 % (42.0-52.0); Hemoglobin 10.9 g/dL (14.0-18.0); Immature Granulocyte Percent A 1.4 % (0-0.5); Lymphocytes Absolute Auto 3.02 K/mm3 (0.9-3.2); Lymphocytes Percent Auto 41.3 % (18.3-44.2); Mean Corpuscular HGB Conc 33.3 g/dl (32-36); Mean Corpuscular Hemoglobin 28.6 pg (26-34); Mean Corpuscular Volume 85.8 fl (80-100); Mean Platelet Volume 8.9 fl (7.4-10.4); Monocytes Absolute Auto 0.9 K/mm3 (0.1-0.6); Monocytes Percent Auto 11.9 % (2.6-8.5); Neutrophils Percent Auto 41.6 % (45.5-73.1); Platelet Count Result 379 k/mm3 (150-375); Red Blood Count 3.81 M/mm3 (4.6-6.20); Red Cell Distribution Width 13.2 % (11.5-14.5); White Blood Count 7.3 K/mm3 (4.5-10.0)
[2020-05-05 05:50] LABS: Anion Gap 5 mmol/L (8-16); Blood Urea Nitrogen 16 mg/dL (9-20); Calcium 8.8 mg/dL (8.4-10.2); Carbon Dioxide 28 mmol/L (22-30); Chloride 104 mmol/L (98-107); Estimated CRCL calculation 100 ml/min; Estimated Glomerular Filt Rate > 60; Glucose 48 mg/dL (75-110); Potassium 3.8 mmol/L (3.4-5.0); Sodium 137 mmol/L (137-145)
[2020-05-05 05:51] VITALS: BP 134/72; PULSE 66; RESP 18; TEMP 36.5; O2SAT 99
[2020-05-05 05:58] LABS: Glucose Point of Care 46 (65-105)
[2020-05-05 06:25] LABS: Glucose Point of Care 69 (65-105)
[2020-05-05] MEDS: amLODIPine BESYLATE 5 MG TABLET 10 MG PO (08:51)
[2020-05-05] MEDS: metFORMIN HCL 500 MG TABLET 1000 MG PO ×2 (08:51→17:39)
[2020-05-05] MEDS: APIXABAN 5 MG TABLET PO ×2 (08:52→17:38)
[2020-05-05] MEDS: lisinopriL 20 MG TABLET 40 MG PO (08:52)
[2020-05-05 12:15] LABS: Glucose Point of Care 87 (65-105)
[2020-05-05 14:00] VITALS: BP 126/70; PULSE 66; RESP 18; TEMP 36.2; O2SAT 100
--- NOTE | 2020-05-05 14:39 | WPDNEURORHBP ---
Subjective Date/time seen: 05/05/20 14:39 Interval history: this 59-year-old diabetic gentleman is here after having had recurrent stroke of right cerebral hemisphere he is improving from the neurological standpoint however his sugars have been dropping so we have to adjust his NPH and also the 3 times a day with meals insulin dosages which we already did earlier this morning the patient remains awake alert and does not show any sign of hypoglycemia or encephalopathy not any distress denies any headache nausea vomiting chest pain shortness of breath fever chills sore throat Review of Systems Review of Systems: All systems reviewed & are unremarkable except as noted in HPI and below Functional Status Ambulation Ability Ability to Ambulate 10 Feet: Standby Assistance Ability to Ambulate 50 Feet With 2 Turns: Standby Assistance Ability to Ambulate 150 Feet: Standby Assistance Ambulation Assistive Devices: Walker, Wheeled Transfers Ability Ability to Transfer In/Out of Chair: Standby Assistance Exam Const: General: comfortable and no acute distress HENMT: General nose exam: Normal nares present Mouth: Yes moist mucous membranes Eyes: General: appearance normal, both eyes and all related structures Neck: Neck: supple and no JVD Resp: Effort & Inspection: normal respiratory effort Auscultation: clear to auscultation bilaterally Cardio: Rate: regular rate Rhythm: regular rhythm GI: GI Palp: Yes Soft to palpation Auscultation: normal bowel sounds Skin: General skin exam: normal color and no rashes or lesions noted Neuro: Other: patient awake and alert well oriented follows all commands and improving left-sided hemiparesis engage in therapy Extrem: General: normal to inspection Psych: Mental Status: mental status grossly normal Objective Data Vital Signs Vital Signs: Vital Signs - 24 hr 05/04/20 21:46 05/05/20 05:51 Temperature 35.8 C L 36.5 C Pulse Rate 66 66 Respiratory Rate 18 18 Blood Pressure 110/57 L 134/72 Pulse Oximetry 100 99 Intake/Output Intake/Output: Intake & Output 05/02/20 05/03/20 05/04/20 05/05/20 23:59 23:59 23:59 23:59 Intake Total 720 720 960 480 Balance 720 720 960 480 Meds/Results Medications: Active Medications Generic Name Dose Route Start Last Admin Trade Name Freq PRN Reason Stop Dose Admin Amlodipine Besylate 10 mg 04/28/20 09:00 05/05/20 08:51 Norvasc PO 10 mg DAILY BRIGHT Administration Apixaban 5 mg 04/28/20 09:00 05/05/20 08:52 Eliquis PO 5 mg BID BRIGHT Administration Atorvastatin Calcium 40 mg 04/27/20 22:30 05/04/20 21:43 Lipitor PO 40 mg HS BRIGHT Administration Cyanocobalamin 2,000 mcg 04/27/20 22:30 05/04/20 21:43 Vitamin B-12 Tab PO 2,000 mcg HS BRIGHT Administration Dextrose 12.5 gm 04/28/20 07:24 Dextrose 50% Syringe IV PUSH PRN PRN Hypoglycemia Protocol Glucagon 1 mg 04/28/20 07:24 Glucagon For Inj IM PRN PRN Hypoglycemia Protocol Glucose 15 gm 04/28/20 07:24 Glutose 15 PO PRN PRN Hypoglycemia Protocol Dextrose 1,000 mls @ 100 mls/hr 04/28/20 07:24 Dextrose 5% 1,000 Ml IVPB PRN PRN Hypoglycemia Protocol Insulin Aspart 4 units 05/05/20 17:00 Novolog SUB-Q 0730,1200,1700 [facility] Insulin Glargine 25 units 05/05/20 21:00 Lantus SUB-Q HS [facility] Lisinopril 40 mg 04/28/20 09:00 05/05/20 08:52 Prinivil PO 40 mg DAILY BRIGHT Administration Metformin HCl 1,000 mg 04/28/20 08:00 05/05/20 08:51 Glucophage PO 1,000 mg BIDWM BRIGHT Administration Labs Labs: Laboratory Results - last 24 hr 05/04/20 05/04/20 05/05/20 17:12 21:48 05:16 WBC 7.3 RBC 3.81 L Hgb 10.9 L Hct 32.7 L MCV 85.8 MCH 28.6 MCHC 33.3 RDW 13.2 Plt Count 379 H MPV 8.9 Immature Gran % (Auto) 1.4 H Neut % (Auto) 41.6 L Lymph % (Auto) 41.3 Caroline % (Auto) 11.9 H Eos % (Auto)
[2020-05-05 17:19] LABS: Glucose Point of Care 346 (65-105)
[2020-05-05] MEDS: INSULIN ASPART (*BKC) 100 UNITS/ML SUB-Q (17:31)
[2020-05-05] MEDS: CYANOCOBALAMIN 1,000 MCG TABLET 2000 MCG PO (21:29)
[2020-05-05] MEDS: ATORVASTATIN 40 MG TABLET PO (21:29)
[2020-05-05 22:00] VITALS: BP 115/67; PULSE 61; RESP 16; TEMP 36.4; O2SAT 91
[2020-05-05 22:43] LABS: Glucose Point of Care 81 (65-105)
[2020-05-06 06:00] VITALS: BP 115/74; PULSE 62; RESP 20; TEMP 37; O2SAT 100
[2020-05-06 06:57] LABS: Glucose Point of Care 97 (65-105)
[2020-05-06 08:00] VITALS: PULSE 62; RESP 20; O2SAT 100
[2020-05-06] MEDS: INSULIN ASPART (*BKC) 100 UNITS/ML SUB-Q ×3 (09:43→17:43)
[2020-05-06] MEDS: lisinopriL 20 MG TABLET 40 MG PO (09:44)
[2020-05-06] MEDS: APIXABAN 5 MG TABLET PO ×2 (09:44→17:43)
[2020-05-06] MEDS: amLODIPine BESYLATE 5 MG TABLET 10 MG PO (09:44)
[2020-05-06] MEDS: metFORMIN HCL 500 MG TABLET 1000 MG PO ×2 (09:44→17:43)
[2020-05-06 11:45] LABS: Glucose Point of Care 97 (65-105)
[2020-05-06 14:00] VITALS: BP 122/74; PULSE 64; RESP 18; TEMP 36.2; O2SAT 97
[2020-05-06 17:46] LABS: Glucose Point of Care 151 (65-105)
[2020-05-06 21:45] LABS: Glucose Point of Care 177 (65-105)
[2020-05-06] MEDS: INSULIN GLARGINE (*BKC) 100 UNITS/ML 25 UNITS SUB-Q (21:48)
[2020-05-06] MEDS: ATORVASTATIN 40 MG TABLET PO (21:49)
[2020-05-06] MEDS: CYANOCOBALAMIN 1,000 MCG TABLET 2000 MCG PO (21:49)
[2020-05-06 22:00] VITALS: BP 116/64; PULSE 69; RESP 18; TEMP 36.3; O2SAT 100
[2020-05-07 05:52] VITALS: BP 131/77; PULSE 61; RESP 20; TEMP 36.6; O2SAT 100
[2020-05-07 06:44] LABS: Glucose Point of Care 125 (65-105)
[2020-05-07] MEDS: amLODIPine BESYLATE 5 MG TABLET 10 MG PO (09:16)
[2020-05-07] MEDS: APIXABAN 5 MG TABLET PO (09:16)
[2020-05-07] MEDS: metFORMIN HCL 500 MG TABLET 1000 MG PO (09:16)
[2020-05-07] MEDS: lisinopriL 20 MG TABLET 40 MG PO (09:18)
[2020-05-07] MEDS: INSULIN ASPART (*BKC) 100 UNITS/ML SUB-Q ×2 (09:20→12:46)
[2020-05-07 12:16] LABS: Glucose Point of Care 77 (65-105)
--- NOTE | 2020-05-07 13:29 | WPDNEURORHBP ---
Subjective Date/time seen: 05/07/20 13:29 Interval history: this 59-year-old diabetic gentleman is here after having had recurrent stroke and has improved as for as the left hemiparesis is concerned the patient is very eager to go home denies any headache nausea vomiting chest pain shortness of breath fever chills sore throat because of fluctuating blood sugars I have cut back on his Lantus and also his 3 times a day regular insulin the patient is to follow-up with the physicians who have seen him at the other facility where he came to us and will go with home health PT OT and gait training Review of Systems Review of Systems: All systems reviewed & are unremarkable except as noted in HPI and below Functional Status Ambulation Ability Ability to Ambulate 10 Feet: Standby Assistance Ability to Ambulate 50 Feet With 2 Turns: Standby Assistance Ability to Ambulate 150 Feet: Contact Guard Ambulation Assistive Devices: Walker, Wheeled Transfers Ability Ability to Transfer In/Out of Chair: Standby Assistance Exam Const: General: comfortable and no acute distress HENMT: General nose exam: Normal nares present Mouth: Yes moist mucous membranes Eyes: General: appearance normal, both eyes and all related structures Neck: Neck: supple and no JVD Resp: Effort & Inspection: normal respiratory effort Auscultation: clear to auscultation bilaterally Cardio: Rate: regular rate Rhythm: regular rhythm GI: GI Palp: Yes Soft to palpation Auscultation: normal bowel sounds Skin: General skin exam: normal color and no rashes or lesions noted Neuro: Other: patient is awake alert well oriented time place and person his left hemiparesis has significantly improved and his ready to be discharged with home health Extrem: General: normal to inspection Psych: Mental Status: mental status grossly normal Objective Data Vital Signs Vital Signs: Vital Signs - 24 hr 05/06/20 14:00 05/06/20 22:00 05/07/20 05:52 Temperature 36.2 C L 36.3 C L 36.6 C Pulse Rate 64 69 61 Respiratory Rate 18 18 20 Blood Pressure 122/74 116/64 131/77 Pulse Oximetry 97 100 100 Intake/Output Intake/Output: Intake & Output 05/04/20 05/05/20 05/06/20 05/07/20 23:59 23:59 23:59 23:59 Intake Total 960 720 480 240 Balance 960 720 480 240 Meds/Results Medications: Active Medications Generic Name Dose Route Start Last Admin Trade Name Keo PRN Reason Stop Dose Admin Amlodipine Besylate 10 mg 04/28/20 09:00 05/07/20 09:16 Norvasc PO 10 mg DAILY BRIGHT Administration Apixaban 5 mg 04/28/20 09:00 05/07/20 09:16 Eliquis PO 5 mg BID BRIGHT Administration Atorvastatin Calcium 40 mg 04/27/20 22:30 05/06/20 21:49 Lipitor PO 40 mg HS BRIGHT Administration Cyanocobalamin 2,000 mcg 04/27/20 22:30 05/06/20 21:49 Vitamin B-12 Tab PO 2,000 mcg HS BRIGHT Administration Dextrose 12.5 gm 04/28/20 07:24 Dextrose 50% Syringe IV PUSH PRN PRN Hypoglycemia Protocol Glucagon 1 mg 04/28/20 07:24 Glucagon For Inj IM PRN PRN Hypoglycemia Protocol Glucose 15 gm 04/28/20 07:24 Glutose 15 PO PRN PRN Hypoglycemia Protocol Dextrose 1,000 mls @ 100 mls/hr 04/28/20 07:24 Dextrose 5% 1,000 Ml IVPB PRN PRN Hypoglycemia Protocol Insulin Aspart 3 units 05/07/20 12:35 05/07/20 12:46 Novolog SUB-Q 3 units 0730,1200,1700 BRIGHT Administration Insulin Glargine 20 units 05/07/20 21:00 Lantus SUB-Q HS [facility] Lisinopril 40 mg 04/28/20 09:00 05/07/20 09:18 Prinivil PO 40 mg DAILY BRIGHT Administration Metformin HCl 1,000 mg 04/28/20 08:00 05/07/20 09:16 Glucophage PO 1,000 mg BIDWM BRIGHT Administration Labs Labs: Laboratory Results - last 24 hr 05/06/20 05/06/20 05/07/20 17:22 21:41 06:38 POC Capillary Glucose 151 H 177 H 125 H 05/07/20 12:12 POC Capillary Glucose 77 Progress Note: A&P Assessment
[2020-05-07 14:00] VITALS: BP 137/73; PULSE 64; RESP 20; TEMP 36.5; O2SAT 100
--- NOTE | 2020-05-12 15:26 | PM.DS ---
DS: Admitting Diagnosis Admitting Diagnosis Admitting Diagnosis: CVA DS: Discharge Diagnosis Discharge Diagnosis (1) Low blood sugar in diabetes: Code(s): E11.649 - Type 2 diabetes mellitus with hypoglycemia without coma Status: Acute (2) Recurrent strokes: Code(s): I63.9 - Cerebral infarction, unspecified Status: Acute (3) Hemiparesis of left nondominant side: Code(s): G81.94 - Hemiplegia, unspecified affecting left nondominant side Status: Acute (4) Tobacco abuse: Code(s): Z72.0 - Tobacco use Status: Acute (5) Diabetes mellitus: Code(s): E11.9 - Type 2 diabetes mellitus without complications Status: Acute (6) Alcohol use: Code(s): Z72.89 - Other problems related to lifestyle Status: Acute (7) Hypertension: Code(s): I10 - Essential (primary) hypertension Status: Acute (8) Stroke: Code(s): I63.9 - Cerebral infarction, unspecified Status: Acute DS: Summary Hospital Course Reason for hospitalization: this 59-year-old gentleman was admitted after having had a recurrent stroke received the PT OT and gait training and management of his underlying diabetes and further details are available in my initial history and physical examination Hospital Course: during the course of hospitalization beside managing his diabetes he received the PT OT and gait training and his quality improvement measures were as follows eating independent, oral hygiene independent, toileting independent, bathing supervision, upper body dressing setup, lower body dressing supervision, footwear independent, rolling in bed independent, sitting to lying independent, lying to sitting independent, sit to stand independent, chair transfers supervision so toilet transfers supervision car transfers supervision walking 10 feet supervision walking 50 feet with 2 turns supervision walking 150 feet supervision walking 10 feet uneven surfaces supervision carb a setup supervision 4 steps supervision 12 steps supervision became of objects supervision wheelchair 50 feet independent and wheelchair 150 feet independent No falls were recorded and patient was sent home with home health to follow and follow-up with the physicians involved with his care prior to him being to came to us Time Spent with Patient Time attestation: Total time spent providing and/or coordinating discharge services: Exam Const: General: comfortable and no acute distress HENMT: General nose exam: Normal nares present Mouth: Yes dry mucous membranes Eyes: General: appearance normal, both eyes and all related structures Neck: Neck: supple and no JVD Resp: Effort & Inspection: normal respiratory effort Auscultation: clear to auscultation bilaterally Cardio: Rate: regular rate Rhythm: regular rhythm GI: GI Palp: Yes Soft to palpation Auscultation: normal bowel sounds Skin: General skin exam: normal color and no rashes or lesions noted Neuro: Other: patient is awake alert well oriented time place and person significant improvement in his left-sided weakness Extrem: General: normal to inspection Psych: Mental Status: mental status grossly normal Discharge Plan Discharge Attending physician on discharge: Pepe Garber Consulting providers: Alexis Alegre Discharging Clinician: Pepe Garber Anticipated Discharge Date/Time: 05/07/20 13:32 Patient Disposition: Home Health Service Activity: may shower and no driving Diet: diabetic Discharge Instructions: Per Care Coordination: Home Health services have been arranged through [facility]. [facility] Home Health can be contacted at [phone]. Please fax discharge instructions to [facility] at [phone]. Patient Instructions: Antibiotic Form, How to Stop Smoking (DC) Stand Alone Forms: General Discharge Information Follow-up/Referrals: PCP [Other] (Follow up with Primary Care Physician as needed) Discharge Med
== END 2020-05-07 16:00 | disposition home health service (06) | DRG 57 ==
PROVIDERS: Admitting Provider Psychiatry & Neurology Neurology; Visit Provider Psychiatry & Neurology Neurology
DX: I69.354 Hemiplegia and hemiparesis following cerebral infarction affecting left non-dominant side (principal); I69.311 Memory deficit following cerebral infarction; I69.322 Dysarthria following cerebral infarction; E78.5 Hyperlipidemia, unspecified; E11.65 Type 2 diabetes mellitus with hyperglycemia; E11.649 Type 2 diabetes mellitus with hypoglycemia without coma; I10 Essential (primary) hypertension; Z87.891 Personal history of nicotine dependence; Z79.4 Long term (current) use of insulin
CPT/HCPCS: 36415; 80048; 83036; 85025; 92507; 92523; 97110; 97112; 97116; 97129; 97162; 97166; 97530; 97535; 97542; A9270; J1815